=== PATIENT | male | born 1960 | race Caucasian/White ===

== ENCOUNTER 2016-04-04 00:30 | Emergency (ER) | payer MEDICAID ==
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
[2016-04-04 00:55] VITALS: BP 169/90; PULSE 94; RESP 16; TEMP 96.3; O2SAT 97
[2016-04-04] MEDS ORDERED: CHLORDIAZEPOXIDE 25MG PREPK#6 BTL TAKEHOME ONE (04:58)
== END 2016-04-04 05:00 | disposition home or self-care (01) ==
LOC: EDUNIT#
DX: F10.129 Alcohol abuse with intoxication, unspecified (principal); F17.200 Nicotine dependence, unspecified, uncomplicated

== ENCOUNTER 2016-09-07 18:21 | Emergency (ER) | payer MEDICAID ==
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
[2016-09-07 18:45] VITALS: TEMP 96.8
[2016-09-07 19:08] VITALS: BP 139/74; PULSE 100; RESP 18; O2SAT 92
== END 2016-09-07 19:08 | disposition home or self-care (01) ==
LOC: EDUNIT#
DX: S61.411A Laceration without foreign body of right hand, initial encounter (principal); F10.920 Alcohol use, unspecified with intoxication, uncomplicated; F17.200 Nicotine dependence, unspecified, uncomplicated; Y04.8XXA Assault by other bodily force, initial encounter

== ENCOUNTER 2016-09-08 09:54 | Emergency (ER) | payer MEDICAID ==
[2016-09-08 10:05] VITALS: TEMP 98.1
[2016-09-08] MEDS ORDERED: CHLORDIAZEPOXIDE 25MG PREPK#6 BTL TAKEHOME ONE (10:52)
[2016-09-08] MEDS ORDERED: LORazepam 1 MG TAB PO ONE (10:52)
--- NOTE | 2016-09-08 10:55 | EDPHY ---
H & P Time Seen by Provider: 09/08/16 10:22 HPI/ROS: CHIEF COMPLAINT: Alcohol withdrawal HISTORY OF PRESENT ILLNESS: 56-year-old male presents to the emergency department by cab with acute alcohol withdrawal. The patient last drank alcohol approximately 12 hours ago. He was seen in the emergency department and taken to the [facility] recovery [facility] last night. When he woke up this morning he was feeling tremulous and was sent to the emergency department for evaluation and for medication. Patient has had numerous alcohol withdrawal related seizures. He would like to quit drinking. He denies any other substance abuse. Denies chest pain or difficulty breathing. Denies abdominal pain. Denies headache. He has chronic neck pain from previous C-spine fracture. REVIEW OF SYSTEMS: Constitutional: No fever, no chills. Eyes: No double or blurry vision. ENT: No sore throat. Respiratory: No cough, no shortness of breath. Cardiac: No chest pain. Gastrointestinal: No abdominal pain, vomiting or diarrhea. Genitourinary: No dysuria. Musculoskeletal: Chronic Neck pain as above. No back pain Skin: No rashes. Neurological: No headache. Past Medical/Surgical History: Chronic neck pain, cervical spine fracture, alcoholism, alcohol withdrawal seizures Social History: Currently homeless Smoking Status: Heavy smoker Physical Exam: General Appearance: Alert, no distress. Heart rate of 70. No obvious distress. Eyes: Pupils equal and round. Extraocular motions are all intact. ENT: Mouth: Mucous membranes moist. Respiratory: No wheezing, rhonchi, or rales, lungs are clear to auscultation. Cardiovascular: Regular rate and rhythm. Gastrointestinal: Abdomen is soft and nontender, no masses, no rebound or guarding, bowel sounds normal. Neurological: Alert and oriented x 3, cranial nerves II through XII grossly intact Skin: Warm and dry, no rashes. Musculoskeletal: Nontender to palpate along the cervical, thoracic or lumbar spine. Neck is supple. Extremities: Full range of motion and no peripheral edema. Psychiatric: Patient is oriented X 3, there is no agitation. Constitutional: Initial Vital Signs Temperature (C) 36.7 C 09/08/16 10:00 Heart Rate 84 09/08/16 10:00 Respiratory Rate 18 09/08/16 10:00 Blood Pressure 151/99 H 09/08/16 10:00 O2 Sat (%) 99 09/08/16 10:00 O2 Delivery Mode Room Air Allergies/Adverse Reactions: No Known Allergies Allergy (Verified 09/08/16 10:02) Home Medications: Medication Instructions Recorded NK [No Known Home Meds] 09/08/16 Medical Decision Making ED Course/Re-evaluation: 56-year-old male presents to the emergency department with alcohol withdrawal. His vital signs are stable including heart rate of 70. No seizure activity in the emergency department. He was given 1 mg of Ativan p. o. since his last drink was 12 hours ago. He was also discharged with a Librium prepack and will be discharged to the addiction recovery Center by cab. Patient is comfortable with this plan. Differential Diagnosis: Including but not limited to alcohol withdrawal, electrolyte abnormality, medication noncompliance, head injury, and breakthrough seizure. Departure - Departure Disposition: Home, Routine, Self-Care Clinical Impression: Alcohol withdrawal Qualifiers: Complication of substance-induced condition: uncomplicated Qualified Code(s): F10.230 - Alcohol dependence with withdrawal, uncomplicated Condition: Good Instructions: Alcohol Withdrawal (ED) Additional Instructions: Go to the Addiction recovery Center so that they can help you with your symptoms of alcohol withdrawal. Your given 1 mg Ativan orally in the emergency department. You will be discharged with Librium for you to give to the staff at the diction recovery Center. Referrals: [facility] [Outside] - As per Instructions
[2016-09-08 11:17] VITALS: BP 145/103; PULSE 78; RESP 16; O2SAT 100
== END 2016-09-08 11:15 | disposition home or self-care (01) ==
DX: F10.230 Alcohol dependence with withdrawal, uncomplicated (principal); F17.200 Nicotine dependence, unspecified, uncomplicated

== ENCOUNTER 2016-09-16 00:27 | Emergency (ER) | payer MEDICAID ==
[~2016-09-16 00:27] MED LIST: AMOXICILLIN/CLAVULANATE POT 875/125 MG TAB PO SCH
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
[2016-09-16 02:09] VITALS: O2SAT 96
[2016-09-16] MEDS ORDERED: OXYCODONE/APAP 5/325MG PREPACK#4 BTL TAKEHOME ONE (02:09)
[2016-09-16 03:15] VITALS: BP 103/63; PULSE 75; RESP 18; TEMP 98.6
== END 2016-09-16 03:15 | disposition home or self-care (01) ==
LOC: EDUNIT#
DX: S02.640A Fracture of ramus of mandible, unspecified side, initial encounter for closed fracture (principal); F17.200 Nicotine dependence, unspecified, uncomplicated; Y04.0XXA Assault by unarmed brawl or fight, initial encounter

== ENCOUNTER 2016-10-22 14:27 | Inpatient (IN) | payer MEDICAID ==
[2016-10-22] MEDS ORDERED: ACETAMINOPHEN 325 MG TAB ONE (14:42)
[2016-10-22] MEDS ORDERED: ACETAMINOPHEN 325 MG TAB PO ONE (14:44)
[2016-10-22] MEDS ORDERED: NS 1,000 ML IV ONE ×2 (14:49→14:56)
--- NOTE | 2016-10-22 14:49 | EDPHY ---
H & P Stated Complaint: Fell last night. Concerned about head injury. Time Seen by Provider: 10/22/16 14:48 HPI/ROS: CHIEF COMPLAINT: Fever, alcoholism, head injury HISTORY OF PRESENT ILLNESS: The patient presents to the ED with a several day history of fever and for evaluation of a fall last night which resulted in head injury. The patient denies any acute nausea or vomiting. He does complain of a frontal headache. The patient reports he has felt fevers for the past several days. He denies an acute cough but does have a chronic one secondary to smoking. He has no complaints of abdominal pain. The patient denies history of rash or arthralgias. The patient reports that he did break his jaw approximately 5 weeks ago. He reports minimal pain to that area currently. REVIEW OF SYSTEMS: A comprehensive 10 point review of systems is otherwise negative aside from elements mentioned in the history of present illness. Source: Patient - Personal History Tetanus Vaccine Date: 2014 - Medical/Surgical History Hx Asthma: No Hx Chronic Respiratory Disease: No Hx Diabetes: No Hx Cardiac Disease: No Hx Renal Disease: No Hx Cirrhosis: No Hx Alcoholism: Yes Hx HIV/AIDS: No Hx Splenectomy or Spleen Trauma: No Other PMH: ETOH ABUSE, ETOH w/d seizures, gerd, cervical spine surgery - Social History Smoking Status: Heavy smoker - Physical Exam Exam: General Appearance: Alert, no distress Head: Hematoma and abrasion noted over left eyebrow Eyes: Pupils equal and round no pallor or injection ENT, Mouth: Dry mucous membranes Respiratory: There are no retractions, lungs are clear to auscultation Cardiovascular: Tachycardic, no murmur appreciated Gastrointestinal: Abdomen is soft and nontender, no masses, bowel sounds normal Neurological: A&O, normal motor function, normal sensory exam, normal cranial nerves Skin: 2 small boils noted on right forearm, non fluctuance Musculoskeletal: Neck is supple nontender Extremities: symmetrical, full range of motion Constitutional: Initial Vital Signs Temperature (C) 38.9 C H 10/22/16 14:33 Heart Rate 102 H 10/22/16 14:33 Respiratory Rate 20 10/22/16 14:33 Blood Pressure 117/82 H 10/22/16 14:33 O2 Sat (%) 94 10/22/16 14:33 O2 Delivery Mode Room Air Allergies/Adverse Reactions: No Known Allergies Allergy (Verified 09/08/16 10:02) Home Medications: Medication Instructions Recorded Escitalopram Oxalate [Lexapro] 20 mg PO DAILY 10/22/16 Esomeprazole Magnesium [Nexium] 20 mg PO BID 10/22/16 Pregabalin [LYRICA] 100 mg PO TID 10/22/16 Medical Decision Making - Diagnostics Imaging Results: Imaging Impressions Head CT 10/22/16 14:50 Impression: 1. Nothing acute identified intracranially. Premature atrophy has been described in a CT report from August 2015. 2. Right mandibular neck and angle fractures incompletely evaluated. 3. Left frontal scalp hematoma. 2. CT Cervical Spine Without Contrast History: Trauma. EtOH. Pain. Comparison: July 23, 2015. Technique: Multi-slice ultrathin single breath-hold helical CT through the neck from the skull base through the thoracic inlet without contrast. Soft tissue and bone window evaluation is performed. Sagittal and coronal reconstructions are obtained. Dose reduction techniques were utilized. Findings: There are stellate soft tissue densities in each lung apex, incompletely evaluated, but associated with apical emphysema. These are not significantly changed since July 23, 2015. Cervical alignment is stable and anatomic. A wide laminectomy with posterior fusion construct between C3 and C6 is stable. There is no evidence for hardware fracture or loosening. A tiny bony density adjacent to the left T1 transverse process is stable. No fracture or dislocation is identified. Disk spaces are well maintained. Facets are normally aligned. The skull base- C1 and C1-C2 relationship are stable and normal. The odontoid process is intact. There is no evidence of a prevertebral or epidural hematoma. Impression: Nothing acute identified. If there is concern for instability, then consider lateral flexion-extension views, cervical fluoroscopy and/or cervical MRI. Results called and discussed with Leonides Cameron, at 10/22/2016 15:53 General information for patients regarding this examination can be found at [email or web address]. If you have questions or comments about this report, please contact me at [phone] (hospital) or [phone] (cell). Cervical Spine CT 10/22/16 14:55 Impression: 1. Nothing acute identified intracranially. Premature atrophy has been described in a CT report from August 2015. 2. Right mandibular neck and angle fractures incompletely evaluated. 3. Left frontal scalp hematoma. 2. CT Cervical Spine Without Contrast History: Trauma. EtOH. Pain. Comparison: July 23, 2015. Technique: Multi-slice ultrathin single breath-hold helical CT through the neck from the skull base through the thoracic inlet without contrast. Soft tissue and bone window evaluation is performed. Sagittal and coronal reconstructions are obtained. Dose reduction techniques were utilized. Findings: There are stellate soft tissue densities in each lung apex, incompletely evaluated, but associated with apical emphysema. These are not significantly changed since July 23, 2015. Cervical alignment is stable and anatomic. A wide laminectomy with posterior fusion construct between C3 and C6 is stable. There is no evidence for hardware fracture or loosening. A tiny bony density adjacent to the left T1 transverse process is stable. No fracture or dislocation is identified. Disk spaces are well maintained. Facets are normally aligned. The skull base- C1 and C1-C2 relationship are stable and normal. The odontoid process is intact. There is no evidence of a prevertebral or epidural hematoma. Impression: Nothing acute identified. If there is concern for instability, then consider lateral flexion-extension views, cervical fluoroscopy and/or cervical MRI. Results called and discussed with Leonides Cameron, at 10/22/2016 15:53 General information for patients regarding this examination can be found at [email or web address]. If you have questions or comments about this report, please contact me at (hospital) or [phone] (cell). Chest X-Ray 10/22/16 14:55 Impression: Probable mild bronchitis. ED Course/Re-evaluation: The patient presents the ED primarily for evaluation of head injury which occurred yesterday. The patient did have a contusion to his scalp. He was taken for CT scan given his complaints of headache and alcoholism and large scalp hematoma. This demonstrated no evidence of a skull fracture or intracranial hemorrhage. There is an old mandibular fracture noted. The patient's CT cervical spine demonstrates no evidence of an acute fracture. Patient's chest x-ray demonstrates no evidence of acute disease. The patient was noted to be febrile upon arrival. The patient does have 2 very small boils on his right forearm. Otherwise his chest x-ray demonstrates no evidence of an obvious bacterial pneumonia, is urinalysis is within normal limits. His laboratory studies demonstrate no significant leukocytosis. The patient was cooled in the emergency department. It was nearly 100 degrees outside today. The patient's temperature improved shortly after arrival however then spiked again to 38 degrees. I evaluated the patient at 5:38 p.m.. He is having shaking chills. At this point time I am fairly concerned about the possibility of occult bacteremia. The patient does have 2 small furuncles on his forearm. The patient will be started on vancomycin and Invanz empirically. Consultation is made with the hospitalist service. The patient presents to the ED with primary symptom surrounding head injury and was incidentally noted to be febrile. Initially I thought it was secondary to heat exposure however after an initial period of defervesced since he has now developed fever and shaking chills. The patient's initial lactate was elevated. The patient has been declared septic shock by myself in the setting of an elevated lactate, positive SIRS criteria and clinical concerns possible bacteremia. The patient has had no hypotension or evidence of septic shock. The patient was given 1 mg of Ativan in the emergency department. Differential Diagnosis: Differential diagnosis considered includes intracranial hemorrhage, skull fracture, cervical spine fracture, pneumonia, sepsis, bacteremia, metabolic abnormality, heat stroke - Data Points Laboratory Results: Laboratory Results 10/22/16 14:35 10/22/16 16:35 10/22/16 10/22/16 10/22/16 16:35 16:35 15:55 WBC RBC Hgb Hct MCV MCH MCHC RDW Plt Count MPV Neut % (Auto) Lymph % (Auto) Bladen % (Auto) Eos % (Auto) Baso % (Auto) Nucleat RBC Rel Count Absolute Neuts (auto) Absolute Lymphs (auto) Absolute Monos (auto) Absolute Eos (auto) Absolute Basos (auto) Absolute Nucleated RBC Immature Gran % Immature Gran # PT INR VBG Lactic Acid 2.3 mmol/L H mmol/L (0.7-2.1) Sodium 132 mEq/L L mEq/L (134-144) Potassium 3.4 mEq/L L mEq/L (3.5-5.2) Chloride 106 mEq/L mEq/L (97-110) Carbon Dioxide 15 mEq/l L mEq/l (22-31) Anion Gap 11 mEq/L mEq/L (8-16) BUN 5 mg/dL L mg/dL (7-23) Creatinine 0.7 mg/dL mg/dL (0.7-1.3) Estimated GFR > 60 Glucose 87 mg/dL mg/dL (70-100) Calcium 6.9 mg/dL L D mg/dL (8.5-10.4) Total Bilirubin Conjugated Bilirubin Unconjugated Bilirubin AST ALT Alkaline Phosphatase Total Protein Albumin Lipase Urine Color PALE YELLOW Urine Appearance CLEAR Urine pH 6.0 (5.0-7.5) Ur Specific Bayard 1.002 (1.002-1.030) Urine Protein NEGATIVE (NEGATIVE) Urine Ketones NEGATIVE (NEGATIVE) Urine Blood NEGATIVE (NEGATIVE) Urine Nitrate NEGATIVE (NEGATIVE) Urine Bilirubin NEGATIVE (NEGATIVE) Urine Urobilinogen NEGATIVE EU EU (0.2-1.0) Ur Leukocyte Esterase NEGATIVE (NEGATIVE) Urine RBC 1-3 /hpf /hpf (0-3) Urine WBC 1-3 /hpf /hpf (0-3) Ur Epithelial Cells NONE SEEN /lpf /lpf (NONE-1+) Urine Mucus TRACE /lpf /lpf (NONE-1+) Urine Glucose NEGATIVE (NEGATIVE) 10/22/16 10/22/16 10/22/16 14:55 14:35 14:35 WBC RBC Hgb Hct MCV MCH MCHC RDW Plt Count MPV Neut % (Auto) Lymph % (Auto) Bladen % (Auto) Eos % (Auto) Baso % (Auto) Nucleat RBC Rel Count Absolute Neuts (auto) Absolute Lymphs (auto) Absolute Monos (auto) Absolute Eos (auto) Absolute Basos (auto) Absolute Nucleated RBC Immature Gran % Immature Gran # PT 13.2 SEC SEC (12.0-15.0) INR 1.01 (0.83-1.16) VBG Lactic Acid 2.4 mmol/L H mmol/L (0.7-2.1) Sodium 129 mEq/L L mEq/L (134-144) Potassium 3.8 mEq/L mEq/L (3.5-5.2) Chloride 97 mEq/L mEq/L (97-110) Carbon Dioxide 17 mEq/l L mEq/l (22-31) Anion Gap 15 mEq/L mEq/L (8-16) BUN 8 mg/dL mg/dL (7-23) Creatinine 0.8 mg/dL mg/dL (0.7-1.3) Estimated GFR > 60 Glucose 115 mg/dL H mg/dL (70-100) Calcium 8.6 mg/dL mg/dL (8.5-10.4) Total Bilirubin 0.4 mg/dL mg/dL (0.1-1.4) Conjugated Bilirubin 0.4 mg/dL mg/dL (0.0-0.5) Unconjugated Bilirubin 0.0 mg/dL mg/dL (0.0-1.1) AST 27 IU/L IU/L (17-59) ALT 29 IU/L IU/L (21-72) Alkaline Phosphatase 134 IU/L H IU/L (38-126) Total Protein 7.1 g/dL g/dL (6.3-8.2) Albumin 4.0 g/dL g/dL (3.5-5.0) Lipase 170 IU/L IU/L (23-300) Urine Color Urine Appearance Urine pH Ur Specific Bayard Urine Protein Urine Ketones Urine Blood Urine Nitrate Urine Bilirubin Urine Urobilinogen Ur Leukocyte Esterase Urine RBC Urine WBC Ur Epithelial Cells Urine Mucus Urine Glucose 10/22/16 14:35 WBC 10.45 10^3/uL H 10^3/uL (3.80-9.50) RBC 4.12 10^6/uL L 10^6/uL (4.40-6.38) Hgb 13.6 g/dL L g/dL (13.7-17.5) Hct 39.7 % L % (40.0-51.0) MCV 96.4 fL fL (81.5-99.8) MCH 33.0 pg pg (27.9-34.1) MCHC 34.3 g/dL g/dL (32.4-36.7) RDW 15.1 % % (11.5-15.2) Plt Count 166 10^3/uL 10^3/uL (150-400) MPV 10.1 fL fL (8.7-11.7) Neut % (Auto) 70.6 % % (39.3-74.2) Lymph % (Auto) 18.1 % % (15.0-45.0) Bladen % (Auto) 10.0 % % (4.5-13.0) Eos % (Auto) 0.1 % L % (0.6-7.6) Baso % (Auto) 0.5 % % (0.3-1.7) Nucleat RBC Rel Count 0.0 % % (0.0-0.2) Absolute Neuts (auto) 7.38 10^3/uL H 10^3/uL (1.70-6.50) Absolute Lymphs (auto) 1.89 10^3/uL 10^3/uL (1.00-3.00) Absolute Monos (auto) 1.05 10^3/uL H 10^3/uL (0.30-0.80) Absolute Eos (auto) 0.01 10^3/uL L 10^3/uL (0.03-0.40) Absolute Basos (auto) 0.05 10^3/uL 10^3/uL (0.02-0.10) Absolute Nucleated RBC 0.00 10^3/uL 10^3/uL (0-0.01) Immature Gran % 0.7 % % (0.0-1.1) Immature Gran # 0.07 10^3/uL 10^3/uL (0.00-0.10) PT INR VBG Lactic Acid Sodium Potassium Chloride Carbon Dioxide Anion Gap BUN Creatinine Estimated GFR Glucose Calcium Total Bilirubin Conjugated Bilirubin Unconjugated Bilirubin AST ALT Alkaline Phosphatase Total Protein Albumin Lipase Urine Color Urine Appearance Urine pH Ur Specific Bayard Urine Protein Urine Ketones Urine Blood Urine Nitrate Urine Bilirubin Urine Urobilinogen Ur Leukocyte Esterase Urine RBC Urine WBC Ur Epithelial Cells Urine Mucus Urine Glucose Medications Given: Discontinued Medications Acetaminophen (Tylenol) 650 mg PO EDNOW ONE Stop: 10/22/16 14:45 Last Admin: 10/22/16 14:45 Dose: 650 mg Sodium Chloride (Ns) 1,000 mls @ 0 mls/hr IV ONCE ONE; Wide Open PRN Reason: Protocol Stop: 10/22/16 14:50 Last Admin: 10/22/16 15:16 Dose: 1,000 mls Sodium Chloride (Ns) 1,000 mls @ 0 mls/hr IV EDNOW ONE; Wide Open PRN Reason: Protocol Stop: 10/22/16 14:57 Last Admin: 10/22/16 15:18 Dose: 1,000 mls Ertapenem 1 gm/ Sodium (Chloride) 100 mls @ 200 mls/hr IV EDNOW ONE PRN Reason: Protocol Stop: 10/22/16 18:05 Last Admin: 10/22/16 17:59 Dose: 100 mls Vancomycin/Sodium Chloride (Vancomycin 1 Gm (Premix)) 250 mls @ 250 mls/hr IV EDNOW ONE PRN Reason: Protocol Stop: 10/22/16 18:35 Last Admin: 10/22/16 17:46 Dose: 250 mls Lorazepam (Ativan Injection) 1 mg IVP EDNOW ONE Stop: 10/22/16 17:47 Last Admin: 10/22/16 17:51 Dose: 1 mg Departure - Departure Disposition: [facility] Inpatient Acute Clinical Impression: Scalp contusion, Alcohol dependence, Febrile illness, acute, Severe sepsis Condition: Good
[2016-10-22 14:56] LABS: % IMMATURE GRANULYOCYTES 0.7 % (0.0-1.1); ABSOLUTE IMMATURE GRANULOCYTES 0.07 10^3/uL (0.00-0.10); ADD DIFF? NO; ADD MORPH? NO; ADD SCAN? NO; ATYPICAL LYMPHOCYTE FLAG 40 (0-99); FRAGMENT RBC FLAG 0 (0-99); HEMATOCRIT 39.7 % (40.0-51.0); HEMOGLOBIN 13.6 g/dL (13.7-17.5); LEFT SHIFT FLG 0 (0-99); LIPEMIA HEMOLYSIS FLAG 90 (0-99); MEAN CELL HEMOGLOBIN CONCENTR. 34.3 g/dL (32.4-36.7); MEAN CELL VOLUME 96.4 fL (81.5-99.8); MEAN PLATELET VOLUME 10.1 fL (8.7-11.7); PLATELET CLUMPS FLAG 0 (0-99); PLATELET COUNT 166 10^3/uL (150-400); RED BLOOD CELL COUNT 4.12 10^6/uL (4.40-6.38); RED CELL DISTRIBUTION WIDTH 15.1 % (11.5-15.2)
[2016-10-22 15:02] LABS: ANION GAP 15 mEq/L (8-16); CALCIUM 8.6 mg/dL (8.5-10.4); CARBON DIOXIDE 17 mEq/l (22-31); CHLORIDE 97 mEq/L (97-110); CREATININE 0.8 mg/dL (0.7-1.3); GLOMERULAR FILTRATION RATE > 60; GLUCOSE 115 mg/dL (70-100); POTASSIUM 3.8 mEq/L (3.5-5.2); SODIUM 129 mEq/L (134-144)
[2016-10-22 15:13] LABS: TOTAL PROTEIN 7.1 g/dL (6.3-8.2)
[2016-10-22 15:14] LABS: ALANINE AMINOTRANSFERASE 29 IU/L (21-72); ALKALINE PHOSPHATASE 134 IU/L (38-126); ASPARTATE AMINOTRANSFERASE 27 IU/L (17-59); BILIRUBIN,TOTAL 0.4 mg/dL (0.1-1.4); BILIRUBIN-CONJUGATED 0.4 mg/dL (0.0-0.5)
[2016-10-22 15:17] LABS: INR 1.01 (0.83-1.16); PROTIME(PATIENT) 13.2 SEC (12.0-15.0)
[2016-10-22 15:22] LABS: ETHANOL SERUM 161 mg/dL (0-10)
[2016-10-22 16:05] LABS: COLOR PALE YELLOW; LEUKOCYTE ESTERASE,URINE NEGATIVE (NEGATIVE); NITRITE,URINE NEGATIVE (NEGATIVE)
[2016-10-22 16:06] LABS: MUCUS TRACE /lpf (NONE-1+)
[2016-10-22 17:11] LABS: ANION GAP 11 mEq/L (8-16); CALCIUM 6.9 mg/dL (8.5-10.4); CARBON DIOXIDE 15 mEq/l (22-31); CHLORIDE 106 mEq/L (97-110); CREATININE 0.7 mg/dL (0.7-1.3); GLOMERULAR FILTRATION RATE > 60; GLUCOSE 87 mg/dL (70-100); POTASSIUM 3.4 mEq/L (3.5-5.2); SODIUM 132 mEq/L (134-144)
[2016-10-22] MEDS ORDERED: VANCOMYCIN HCL/NORMAL SALINE 250 ML IV ONE (17:36)
[2016-10-22] MEDS ORDERED: ERTAPENEM 1 GM in NS 100 ML IV ONE (17:36)
[2016-10-22] MEDS ORDERED: LORazepam 2 MG/ML INJ IVP ONE (17:46)
[2016-10-22] MEDS ORDERED: ONDANSETRON 4 MG/2 ML VIAL IVP PRN (19:27)
[2016-10-22] MEDS ORDERED: ONDANSETRON DISINTEGRATING 4 MG TAB PO PRN (19:27)
[2016-10-22] MEDS ORDERED: chlordiazePOXIDE 25 MG CAP PO PRN (19:29)
[2016-10-22] MEDS ORDERED: chlordiazePOXIDE 25 MG CAP PO ONE (19:29)
[2016-10-22] MEDS ORDERED: NS 1,000 ML IV SCH (19:30)
[2016-10-22] MEDS ORDERED: POTASSIUM CL 20 MEQ TAB PO ONE (19:31)
[2016-10-22] MEDS: IPRATROPIUM/ALBUTEROL 3 ML DEYVIAL IH SCH (20:33)
[2016-10-22] MEDS: PREGABALIN 100 MG CAP PO SCH (21:15)
[2016-10-22] MEDS: ACETAMINOPHEN 325 MG TAB PO PRN (21:15)
--- NOTE | 2016-10-22 22:02 | GHP ---
[f rep st] HISTORY AND PHYSICAL DATE OF ADMISSION: 10/22/2016 CHIEF COMPLAINT: Fell last night, fever. HISTORY OF PRESENT ILLNESS: This is a 56-year-old male, with alcoholism, who presents with a fall l ast night with resulting head injury. He also complains of fever for several days. He does say mart t he has had significant amounts of coughing with some sputum production. No shortness of breath. No dysuria. No abdominal pain. He just had a recent jaw fracture about 5 weeks ago. He does drink a 40 of beer per day, and states that he has gone into withdrawal at times. REVIEW OF SYSTEMS: A 10-point review of systems was obtained and was negative. PAST MEDICAL HISTORY: 1. Alcoholism. 2. History of withdrawal seizures. 3. GERD. 4. History of cervical spine surgery. MEDICATIONS: Reviewed. SOCIAL HISTORY: Alcohol intake as above. Does smoke. FAMILY HISTORY: Reviewed, noncontributory. PHYSICAL EXAMINATION: VITAL SIGNS: Temperature is 38.9, blood pressure is 157/86, heart rate 109, oxygen saturation 94% on room air. GENERAL: The patient is well developed, no apparent distress. H EENT: Nonicteric sclerae. Extraoculars muscles intact. Moist mucous membranes. NECK: Supple. N o thyromegaly. LUNGS: Good effort. There is some scattered coarse wheezing bilaterally. No rhonc hi. CARDIOVASCULAR: Slightly tachycardic. No murmurs, rubs or gallops. ABDOMEN: Positive bowel sounds, soft, nontender, nondistended. No hepatosplenomegaly. EXTREMITIES : No clubbing, cyanosis, or edema. SKIN: Without rash. Dry, intact. NEUROLOGIC: Alert and orien terra x3. Moving all 4 extremities equally. PSYCHIATRIC: Normal mood and affect. LABORATORY DATA: White count slightly elevated at 10, lactate was elevated at 2.4, has come down to 2.3 with fluids. Sodium 132, potassium 3.4, creatinine is 0.7. Ethyl alcohol is 161. Respiratory panel has come back with human rhinovirus/enterovirus. ASSESSMENT: This is a 56-year-old male with a history of recent fall and fever. PLAN: 1. Status post fall. Head CT is negative. We will continue to monitor mental status. 2. Fever. The patient is positive for human rhinovirus. Other blood cultures are pending. He guillory s seem to have worsening cough. At this point, we will hold off on any further antibiotics. We madison l get blood cultures and see how he does symptomatically. 3. Alcoholism. We will place on CIWA protocol. 4. Hyponatremia, probably dry. 5. Mild hypokalemia, replace. /[id number]/MODL
[2016-10-23] MEDS: LORazepam 2 MG/ML INJ IVP PRN ×2 (04:44→11:00)
[2016-10-23 04:47] LABS: % IMMATURE GRANULYOCYTES 0.5 % (0.0-1.1); ABSOLUTE IMMATURE GRANULOCYTES 0.07 10^3/uL (0.00-0.10); ADD DIFF? NO; ADD MORPH? NO; ADD SCAN? NO; ATYPICAL LYMPHOCYTE FLAG 40 (0-99); FRAGMENT RBC FLAG 0 (0-99); HEMATOCRIT 43.6 % (40.0-51.0); HEMOGLOBIN 14.5 g/dL (13.7-17.5); LEFT SHIFT FLG 10 (0-99); LIPEMIA HEMOLYSIS FLAG 80 (0-99); MEAN CELL HEMOGLOBIN 32.8 pg (27.9-34.1); MEAN CELL HEMOGLOBIN CONCENTR. 33.3 g/dL (32.4-36.7); MEAN CELL VOLUME 98.6 fL (81.5-99.8); MEAN PLATELET VOLUME 10.2 fL (8.7-11.7); PLATELET CLUMPS FLAG 0 (0-99); PLATELET COUNT 179 10^3/uL (150-400); RED BLOOD CELL COUNT 4.42 10^6/uL (4.40-6.38); RED CELL DISTRIBUTION WIDTH 15.4 % (11.5-15.2)
[2016-10-23 05:18] LABS: ALANINE AMINOTRANSFERASE 24 IU/L (21-72); ALBUMIN 3.6 g/dL (3.5-5.0); ALKALINE PHOSPHATASE 132 IU/L (38-126); ANION GAP 12 mEq/L (8-16); ASPARTATE AMINOTRANSFERASE 28 IU/L (17-59); BILIRUBIN,TOTAL 0.6 mg/dL (0.1-1.4); CALCIUM 8.2 mg/dL (8.5-10.4); CARBON DIOXIDE 20 mEq/l (22-31); CHLORIDE 106 mEq/L (97-110); CREATININE 0.7 mg/dL (0.7-1.3); GLOMERULAR FILTRATION RATE > 60; GLUCOSE 113 mg/dL (70-100); MAGNESIUM 2.1 mg/dL (1.6-2.3); POTASSIUM 4.6 mEq/L (3.5-5.2); SODIUM 138 mEq/L (134-144); TOTAL PROTEIN 6.7 g/dL (6.3-8.2)
[2016-10-23] MEDS: IPRATROPIUM/ALBUTEROL 3 ML DEYVIAL IH SCH ×2 (05:36→11:34)
[2016-10-23] MEDS: PREGABALIN 100 MG CAP PO SCH (07:46)
[2016-10-23] MEDS ORDERED: MULTIVITAMINS 1 EACH TAB PO SCH (09:00)
[2016-10-23] MEDS ORDERED: ENOXAPARIN 40 MG/0.4 ML SYR SC SCH (09:00)
[2016-10-23] MEDS ORDERED: PANTOPRAZOLE SODIUM 40 MG TAB PO SCH (09:00)
[2016-10-23] MEDS ORDERED: ESCITALOPRAM OXALATE 10 MG TAB PO SCH (09:00)
[2016-10-23 09:08] VITALS: BP 126/68; TEMP 99.9
[2016-10-23] MEDS: ACETAMINOPHEN 325 MG TAB PO PRN (11:00)
[2016-10-23] MEDS ORDERED: BACITRACIN OINTMENT 1 PACKET TP SCH (11:45)
[2016-10-23 11:48] VITALS: PULSE 94; RESP 16; O2SAT 92
--- NOTE | 2016-10-23 12:21 | ASDISCHSUM ---
Discharge Information Plan Status:Home with No Needs Medically Cleared to Leave: Discharge Date:10/23/2016 11:51 AM CM D/C Disposition:Against Medical Advice ADT D/C Disposition:Home, Routine, Self-Care Projected Discharge Date:10/23/2016 11:51 AM Transportation at D/C:Self Discharge Delay Reason: Follow-Up Date:10/23/2016 11:51 AM Discharge Slot: Final Diagnosis: Placement Information Patient Contact Information Contact Name:REYNALDO Relationship: Address: Home Phone: Work Phone: City: Alternate Phone: State/[place] Code: Email: Financial Information Financial Class: Primary Plan Desc:[employer] [place] Primary Plan Number:[id number] Secondary Plan Desc: Secondary Plan Number: Assessment Information Intervention Information
--- NOTE | 2016-10-23 14:24 | PDDCSUM ---
Discharge Summary Discharge Summary: DISCHARGE SUMMARY FOLLOW-UP ITEMS: Follow up with primary care provider DATE OF ADMISSION: 10/22/2016 DATE OF DISCHARGE: 10/23/2016 DISCHARGE DIAGNOSES: 1. Acute enterovirus and rhinovirus infection 2. Acute mechanical fall with closed head injury 3. Acute alcohol withdrawal 4. Acute hyponatremia 5. Acute metabolic/lactic acidosis 6. Acute alcohol intoxication CONSULTATIONS: None PROCEDURES / IMAGING: Head CT demonstrating no intracranial hemorrhage CHIEF COMPLAINT: Acute headache pain, myalgias SUBJECTIVE: Patient is feeling well at time of discharge, he is requesting to be discharged because like to smoke, he continues to have some pain over his left scalp PHYSICAL EXAM ON DISCHARGE: Systolic blood pressure is 120-130, heart rate 80, last fever was at 9:00 p.m. on the evening prior, satting well on room air, alert awake oriented x3, no apparent distress, scalp laceration without any surrounding erythema or ecchymoses, some left eyelid edema without overt tenderness, full range of motion of the left eye, no scleral injection, non tremulous, no asterixis, concentration 7/7, lungs are clear to auscultation bilaterally LABS ON DISCHARGE: Alcohol level on presentation 161, urinalysis negative, alk-phos 132, venous lactic acid 2.2, serum sodium 138, white blood count [id number], creatinine 0.7, respiratory viral panel positive for rhinovirus and enterovirus HOSPITAL COURSE BY PROBLEM: 1. Acute rhino virus and enterovirus infection. Patient's myalgias, leukocytosis, fever, general discomfort most likely secondary to viral infection. The patient has been experiencing this for several days and will most likely be a self-limited process. We recommended supportive care with Tylenol and ibuprofen. The patient does not have any evidence of acute airway issues and he is safe for discharge home. 2. Acute metabolic acidosis. Secondary to lactic acid, most likely secondary to ketoacidosis in the setting of alcohol intoxication and poor oral intake. Patient is not hypotensive; he does not require further testing. He does not require further testing. 3. Acute hyponatremia. Secondary to hypovolemia on presentation, he received normal saline and this corrected. 4. Acute alcohol intoxication. The patient presented acutely intoxicated with an alcohol level of 161, resulting in a mechanical fall. 5. Acute alcohol withdrawal. After maintaining sobriety in the hospital, the patient experienced acute alcohol withdrawal, was treated on a [facility] protocol. Given that the patient does not require sobriety at this time, there is no purpose in further medical detox, and the patient is electing for discharge home. 6. Acute mechanical fall with closed head injury. The patient experienced a mechanical fall and closed head injury in the setting of alcohol intoxication and viral infection. He did not have any intracranial hemorrhage on head imaging, and his scalp was treated with bacitracin. The patient was not demonstrating any concussion symptoms at the time of discharge. DISCHARGE MEDICATIONS: Please see official discharge medication reconciliation sheet in chart , continue home medications. DISCHARGE INSTRUCTIONS: Please follow up with primary care provider next week. TIME SPENT: Greater than 30 minutes were spent on direct patient care, as well as discharge planning and preparation. The patient elected to be discharged, and his clinical condition improved much more rapidly than originally anticipated, secondary to highly efficient expeditious care by his nursing team, hospitalist, and by his admitting provider , Dr. Brenden Babcock. The patient is appropriate for discharge at this time.
[2016-10-25] MEDS ORDERED: THIAMINE HCL 100 MG TAB PO SCH (09:00)
== END 2016-10-23 11:51 | disposition home or self-care (01) | DRG 866 ==
LOC: EDUNIT# → F3E 18:51
PROVIDERS: ADMIT Internal Medicine; ATTEND Internal Medicine
PROC: HZ2ZZZZ Detoxification Services for Substance Abuse Treatment (ICD-10-PCS; principal; 2016-10-22)
DX: B34.1 Enterovirus infection, unspecified (principal); B34.8 Other viral infections of unspecified site; E87.2 Acidosis; E87.1 Hypo-osmolality and hyponatremia; F10.220 Alcohol dependence with intoxication, uncomplicated; F10.230 Alcohol dependence with withdrawal, uncomplicated; S09.8XXA Other specified injuries of head, initial encounter; W19.XXXA Unspecified fall, initial encounter; Y92.9 Unspecified place or not applicable; Y99.8 Other external cause status; F17.210 Nicotine dependence, cigarettes, uncomplicated; S02.642D Fracture of ramus of left mandible, subsequent encounter for fracture with routine healing; Z59.0 Homelessness
CPT/HCPCS: 96365; G0480; J1335; J1650; J2060; J3370

== ENCOUNTER 2016-10-24 04:52 | Inpatient (IN) | payer MEDICAID ==
[2016-10-24] MEDS ORDERED: NS 1,000 ML IV ONE ×3 (04:54→06:39)
[2016-10-24] MEDS ORDERED: VANCOMYCIN HCL/NORMAL SALINE 250 ML IV ONE (04:54)
[2016-10-24] MEDS ORDERED: CLINDAMYCIN 900 MG/DEXTROSE 50 ML IV ONE (04:55)
[2016-10-24] MEDS ORDERED: IBUPROFEN 200 MG TAB PO ONE (04:57)
[2016-10-24] MEDS ORDERED: ACETAMINOPHEN 500 MG TAB PO ONE (04:57)
[2016-10-24] MEDS ORDERED: IOPAMIDOL (ISOVUE-300) 100 ML BTL ONE (05:02)
--- NOTE | 2016-10-24 05:02 | EDPHY ---
H & P HPI/ROS: HPI CHIEF COMPLAINT: Fever, facial pain and swelling, cough productive green sputum HISTORY OF PRESENT ILLNESS: This patient very pleasant 56-year-old male, homeless, alcoholic, recently here in the hospital September 16 for mandibular fracture and facial trauma. He was recently seen here in the emergency room on October 22 status post fall and head injury. He presents back to the emergency room by EMS from the [facility] after call 911 for worsening facial swelling and pain. Upon arrival here in the emergency room: Patient is noted to be febrile. Clinically on exam he has significant facial cellulitis and periorbital edema. Past Medical History: Alcoholism, daily alcohol use, closed head injury, cervical fusion, hyponatremia Past Surgical History: Cervical fusion Social History: Does smoke tobacco daily, alcohol daily, denies drugs Family History: Noncontributory ROS REVIEW OF SYSTEMS: A comprehensive 10 point review of systems is otherwise negative aside from elements mentioned in the history of present illness. Exam Constitutional appears unwell, triage nursing summary reviewed, vital signs reviewed, awake/alert. Eyes normal conjunctivae and sclera, EOMI, PERRLA. HENT face: Significant bilateral periorbital edema, soft and fluctuant, no induration, worse on the left periorbital space than the right, extraocular movements are tacked on both eyes there is no proptosis. The swelling periorbital around left eye is significant, occluding his vision however when you open this he has no proptosis he can see an extra movements are intact. Abrasions left forehead present, moist mucus membranes, no epistaxis, neck supple/ no meningismus, no raccoon eyes. Respiratory clear to auscultation bilaterally, normal breath sounds, no respiratory distress, no wheezing. Cardiovascular rate normal, regular rhythm, no murmur, no edema, distal pulses normal. Gastrointestinal soft, non-tender, no rebound, no guarding, normal bowel sounds, no distension, no pulsatile mass. Genitourinary no CVA tenderness. Musculoskeletal no midline vertebral tenderness, full range of motion, no calf swelling, no tenderness of extremities, no meningismus, good pulses, neurovascularly intact. Skin significant abrasion left forehead concerning for source of infection. Neurologic awake, alert and oriented x 3, AAOx3, moves all 4 extremities equally, motor intact, sensory intact, CN II-XII intact, normal cerebellar, normal vision, normal speech. Psychiatric normal mood/affect. Heme/Lymph/Immune no lymphadenopathy. Differential Diagnosis: Includes but is not limited to: Facial cellulitis, sepsis, periorbital cellulitis, orbital cellulitis, orbital abscess Medical Decision Making: Plan for this patient IV establishment, IV vancomycin IV clindamycin, CT maxillofacial with IV contrast, blood including blood cultures, inflammatory markers and lactic acid. Patient need to be hospitalized with significant amount of facial cellulitis he has on exam. Chest x-ray two view. Re-evaluation: 0548AM: CT scan report called to me by Dr. Ross Nair. This patient has significant facial cellulitis. He does not cross the septum. There is no septal cellulitis or retro-orbital hematoma or abscess or fluid collection. Significant soft tissue swelling no gas of the face. 0548AM: This patient is noted to be febrile, elevated white blood cell count obvious signs of facial cellulitis. I have ordered him IV vancomycin IV clindamycin. Blood cultures. IV fluids. Will be admitted to the hospitalist service. Final diagnosis significant facial cellulitis, tachycardia, elevated white blood cell count, sepsis. Patient be admitted to the hospitalist service Dr. Samuel. Patient has been resuscitated with IV vancomycin, IV clindamycin, 2 L normal saline bolus. CT reviewed shows preseptal cellulitis no septal collection. Source: Patient, EMS - Personal History Tetanus Vaccine Date: 2014 - Medical/Surgical History Hx Asthma: No Hx Chronic Respiratory Disease: No Hx Diabetes: No Hx Cardiac Disease: No Hx Renal Disease: No Hx Cirrhosis: No Hx Alcoholism: Yes Hx HIV/AIDS: No Hx Splenectomy or Spleen Trauma: No Other PMH: ETOH ABUSE, ETOH w/d seizures, gerd, cervical spine surgery - Social History Smoking Status: Heavy smoker Constitutional: Initial Vital Signs Temperature (C) 39.5 C H 10/24/16 04:54 Heart Rate 116 H 10/24/16 04:54 Respiratory Rate 20 10/24/16 04:54 Blood Pressure 150/89 H 10/24/16 04:54 O2 Sat (%) 94 10/24/16 04:54 O2 Delivery Mode Room Air Allergies/Adverse Reactions: No Known Allergies Allergy (Verified 10/24/16 04:58) Home Medications: Medication Instructions Recorded Escitalopram Oxalate [Lexapro] 20 mg PO DAILY 10/24/16 Pregabalin [LYRICA] 100 mg PO TID 10/24/16 Medical Decision Making - Diagnostics Imaging Results: Imaging Impressions Chest X-Ray 10/24/16 04:58 Impression: 1. Suspect bilateral diffuse pneumonitis. 2. Recommend CT chest imaging. - Data Points Laboratory Results: Laboratory Results 10/24/16 04:59 10/24/16 04:59 Medications Given: Enoxaparin Sodium (Lovenox) 40 mg SC DAILY ELEANOR Stop: 04/22/17 08:59 Last Admin: 10/24/16 11:00 Dose: 40 mg Folic Acid (Folic Acid) 1 mg PO DAILY ELEANOR Stop: 04/22/17 08:59 Last Admin: 10/24/16 11:01 Dose: 1 mg Clindamycin Phosphate/Dextrose (Cleocin 600 Mg (Premix)) 50 mls @ 100 mls/hr IV Q8HRS ELEANOR PRN Reason: Protocol Stop: 11/23/16 13:59 Last Admin: 10/24/16 15:07 Dose: 50 mls Vancomycin/Sodium Chloride (Vancomycin 1 Gm (Premix)) 250 mls @ 250 mls/hr IV Q12H ELEANOR Stop: 11/23/16 17:59 Last Admin: 10/24/16 18:05 Dose: 250 mls Multivitamins (Tab-A-Deshawn) 1 each PO DAILY ELEANOR Stop: 04/22/17 08:59 Last Admin: 10/24/16 11:01 Dose: 1 each Nicotine (Nicoderm Cq) 21 mg TD DAILY ELEANOR Stop: 04/22/17 08:59 Last Admin: 10/24/16 11:01 Dose: 21 mg Oxycodone HCl (Oxycodone Ir) 5 - 10 mg PO Q3HRS PRN PRN Reason: Pain, Severe Able to Take PO Stop: 11/03/16 06:38 Last Admin: 10/24/16 19:37 Dose: 10 mg Pregabalin (Lyrica) 100 mg PO TID ELEANOR Stop: 04/22/17 15:59 Last Admin: 10/24/16 18:05 Dose: 100 mg Discontinued Medications Acetaminophen (Tylenol) 1,000 mg PO EDNOW ONE Stop: 10/24/16 04:58 Last Admin: 10/24/16 05:06 Dose: 1,000 mg Sodium Chloride (Ns) 1,000 mls @ 0 mls/hr IV ONCE ONE; Wide Open PRN Reason: Protocol Stop: 10/24/16 04:55 Last Admin: 10/24/16 05:13 Dose: 1,000 mls Vancomycin/Sodium Chloride (Vancomycin 1 Gm (Premix)) 250 mls @ 250 mls/hr IV EDNOW ONE PRN Reason: Protocol Stop: 10/24/16 05:53 Last Admin: 10/24/16 06:16 Dose: 250 mls Clindamycin Phosphate/Dextrose (Cleocin 900 Mg (Premix)) 50 mls @ 100 mls/hr IV EDNOW ONE PRN Reason: Protocol Stop: 10/24/16 05:24 Last Admin: 10/24/16 05:50 Dose: 50 mls Sodium Chloride (Ns) 1,000 mls @ 0 mls/hr IV ONCE ONE PRN Reason: Wide Open Stop: 10/24/16 05:33 Last Admin: 10/24/16 05:50 Dose: 1,000 mls Sodium Chloride (Ns) 1,000 mls @ 250 mls/hr IV ONCE ONE Stop: 10/24/16 10:38 Last Admin: 10/24/16 09:18 Dose: 1,000 mls Ibuprofen (Motrin) 800 mg PO EDNOW ONE Stop: 10/24/16 04:58 Last Admin: 10/24/16 05:07 Dose: 800 mg Departure - Departure Disposition: [facility] Acute Clinical Impression: Diffuse cellulitis of face Forehead abrasion Qualifiers: Encounter type: initial encounter Qualified Code(s): S00.81XA - Abrasion of other part of head, initial encounter Condition: Serious
[2016-10-24 05:05] LABS: % IMMATURE GRANULYOCYTES 0.7 % (0.0-1.1); ADD DIFF? NO; ADD MORPH? NO; ADD SCAN? NO; ATYPICAL LYMPHOCYTE FLAG 0 (0-99); FRAGMENT RBC FLAG 0 (0-99); HEMATOCRIT 41.7 % (40.0-51.0); HEMOGLOBIN 14.4 g/dL (13.7-17.5); LEFT SHIFT FLG 30 (0-99); LIPEMIA HEMOLYSIS FLAG 90 (0-99); MEAN CELL HEMOGLOBIN 33.2 pg (27.9-34.1); MEAN CELL HEMOGLOBIN CONCENTR. 34.5 g/dL (32.4-36.7); MEAN CELL VOLUME 96.1 fL (81.5-99.8); MEAN PLATELET VOLUME 10.3 fL (8.7-11.7); PLATELET CLUMPS FLAG 0 (0-99); PLATELET COUNT 192 10^3/uL (150-400); RED BLOOD CELL COUNT 4.34 10^6/uL (4.40-6.38)
[2016-10-24 05:15] LABS: INR 0.95 (0.83-1.16); PROTIME(PATIENT) 12.6 SEC (12.0-15.0)
[2016-10-24 05:22] LABS: ALANINE AMINOTRANSFERASE 30 IU/L (21-72); ALBUMIN 4.3 g/dL (3.5-5.0); ALKALINE PHOSPHATASE 164 IU/L (38-126); ANION GAP 15 mEq/L (8-16); ASPARTATE AMINOTRANSFERASE 36 IU/L (17-59); BILIRUBIN,TOTAL 0.7 mg/dL (0.1-1.4); BILIRUBIN-CONJUGATED 0.4 mg/dL (0.0-0.5); BILIRUBIN-UNCONJUGATED 0.3 mg/dL (0.0-1.1); CALCIUM 8.8 mg/dL (8.5-10.4); CARBON DIOXIDE 19 mEq/l (22-31); CHLORIDE 98 mEq/L (97-110); CREATININE 0.8 mg/dL (0.7-1.3); GLOMERULAR FILTRATION RATE > 60; GLUCOSE 107 mg/dL (70-100); SODIUM 132 mEq/L (134-144); TOTAL PROTEIN 7.8 g/dL (6.3-8.2)
[2016-10-24 05:26] LABS: SEDIMENTATION RATE 20 MM/HR (0-20)
[2016-10-24] MEDS ORDERED: TDAP ADULT 0.5 ML INJ (BOOSTRIX) IM ONE (05:34)
[2016-10-24 06:00] LABS: C-REACTIVE PROTEIN 131.8 mg/L (<10.0)
[2016-10-24] MEDS ORDERED: ONDANSETRON 4 MG/2 ML VIAL IVP PRN (06:39)
[2016-10-24] MEDS ORDERED: ONDANSETRON DISINTEGRATING 4 MG TAB PO PRN (06:39)
[2016-10-24] MEDS ORDERED: ALBUTEROL 60 PUFFS/8 GM MDI IH PRN (06:39)
[2016-10-24] MEDS ORDERED: LORazepam 2 MG/ML INJ IVP PRN (06:42)
--- NOTE | 2016-10-24 06:49 | PDGENHP ---
History and Physical - Chief Complaint Facial swelling - History of Present Illness 56 yo homeless M w/ hx of ETOH abuse presents with facial swelling after recent admission (discharged 10/23) where he was treated for alcohol withdrawal, mechanical fall with facial injury, and hyponatremia. Since discharge, he has noticed worsening redness and swelling of his face, particularly around his L eye. Additionally, he noticed fevers and malaise. He drinks 6 pack of beer daily and smokes 1 PPD, which he has done for 35 years. He denies other drug use. History Information - Allergies/Home Medication List Allergies/Adverse Reactions: No Known Allergies Allergy (Verified 10/24/16 04:58) Home Medications: Escitalopram Oxalate [Lexapro] 20 mg PO DAILY 10/22/16 [Last Taken 10/08/16] Esomeprazole Magnesium [Nexium] 20 mg PO BID 10/22/16 [Last Taken 10/15/16] Pregabalin [LYRICA] 100 mg PO TID 10/22/16 [Last Taken 10/22/16 11:00] I have personally reviewed and updated: family history, medical history - Past Medical History Additional medical history: Depression. ETOH abuse, withdrawal - Surgical History Reports: no pertinent surgical hx - Family History Additional family history: Adopted, does not know biological family - Social History Smoking Status: Heavy smoker Alcohol Use: Heavy (6 pack daily) Drug Use: None Review of Systems ROS: 10pt was reviewed & negative except for what was stated in HPI & below Physical Exam Temp Pulse Resp BP Pulse Ox 39.2 C H 93 20 119/70 93 10/24/16 05:52 10/24/16 05:52 10/24/16 05:52 10/24/16 05:52 10/24/16 05:52 O2 (L/minute) 2 Constitutional: uncomfortable, unkempt Eyes: other (Bilateral eduardo-orbital swelling, L>R; L eye swollen shut with significant facial erythema. Facial lacerations noted.) Ears, Nose, Mouth, Throat: moist mucous membranes, no oral mucosal ulcers Cardiovascular: no murmur, rub, or gallop, tachycardia Respiratory: no respiratory distress, rhonchi Gastrointestinal: normoactive bowel sounds, soft, non-tender abdomen Skin: warm, erythema (Facial erythema and swelling L>R) Musculoskeletal: full muscle strength, no muscle tenderness Neurologic: AAOx3, sensation intact bilaterally Psychiatric: interacting appropriately, other (Mildly somnolent but appropriate and easily arousable) Lab Data & Imaging Review 10/24/16 04:59 10/24/16 04:59 WBC 15.37 10^3/uL (3.80-9.50) H 10/24/16 04:59 RBC 4.34 10^6/uL (4.40-6.38) L 10/24/16 04:59 Hgb 14.4 g/dL (13.7-17.5) 10/24/16 04:59 POC Hgb 16.0 gm/dL (13.7-17.5) 10/24/16 04:51 Hct 41.7 % (40.0-51.0) 10/24/16 04:59 POC Hct 47 % (40-51) 10/24/16 04:51 MCV 96.1 fL (81.5-99.8) 10/24/16 04:59 MCH 33.2 pg (27.9-34.1) 10/24/16 04:59 MCHC 34.5 g/dL (32.4-36.7) 10/24/16 04:59 RDW 15.0 % (11.5-15.2) 10/24/16 04:59 Plt Count 192 10^3/uL (150-400) 10/24/16 04:59 MPV 10.3 fL (8.7-11.7) 10/24/16 04:59 Neut % (Auto) 77.8 % (39.3-74.2) H 10/24/16 04:59 Lymph % (Auto) 15.0 % (15.0-45.0) 10/24/16 04:59 [place] % (Auto) 6.1 % (4.5-13.0) 10/24/16 04:59 Eos % (Auto) 0.0 % (0.6-7.6) L 10/24/16 04:59 Baso % (Auto) 0.4 % (0.3-1.7) 10/24/16 04:59 Nucleat RBC Rel Count 0.0 % (0.0-0.2) 10/24/16 04:59 Absolute Neuts (auto) 11.96 10^3/uL (1.70-6.50) H 10/24/16 04:59 Absolute Lymphs (auto) 2.31 10^3/uL (1.00-3.00) 10/24/16 04:59 Absolute Monos (auto) 0.94 10^3/uL (0.30-0.80) H 10/24/16 04:59 Absolute Eos (auto) 0.00 10^3/uL (0.03-0.40) L 10/24/16 04:59 Absolute Basos (auto) 0.06 10^3/uL (0.02-0.10) 10/24/16 04:59 Absolute Nucleated RBC 0.00 10^3/uL (0-0.01) 10/24/16 04:59 Immature Gran % 0.7 % (0.0-1.1) 10/24/16 04:59 Immature Gran # 0.10 10^3/uL (0.00-0.10) 10/24/16 04:59 ESR 20 MM/HR (0-20) 10/24/16 04:59 PT 12.6 SEC (12.0-15.0) 10/24/16 04:59 INR 0.95 (0.83-1.16) 10/24/16 04:59 APTT 35.0 SEC (23.0-38.0) 10/24/16 04:59 VBG Lactic Acid 2.4 mmol/L (0.7-2.1) H 10/24/16 05:15 POC Sodium 132 mEq/L (134-144) L 10/24/16 04:51 Sodium 132 mEq/L (134-144) L 10/24/16 04:59 POC Potassium 3.7 mEq/L (3.3-5.0) 10/24/16 04:51 Potassium 4.0 mEq/L (3.5-5.2) 10/24/16 04:59 POC Chloride 98 mEq/L (97-110) 10/24/16 04:51 Chloride 98 mEq/L (97-110) 10/24/16 04:59 Carbon Dioxide 19 mEq/l (22-31) L 10/24/16 04:59 Anion Gap 15 mEq/L (8-16) 10/24/16 04:59 POC BUN 5 mg/dL (7-23) L 10/24/16 04:51 BUN 6 mg/dL (7-23) L 10/24/16 04:59 Creatinine 0.8 mg/dL (0.7-1.3) 10/24/16 04:59 POC Creatinine 0.9 mg/dL (0.7-1.3) 10/24/16 04:51 Estimated GFR > 60 10/24/16 04:59 Glucose 107 mg/dL (70-100) H 10/24/16 04:59 POC Glucose 112 mg/dL (70-100) H 10/24/16 04:51 Calcium 8.8 mg/dL (8.5-10.4) 10/24/16 04:59 Total Bilirubin 0.7 mg/dL (0.1-1.4) 10/24/16 04:59 Conjugated Bilirubin 0.4 mg/dL (0.0-0.5) 10/24/16 04:59 Unconjugated Bilirubin 0.3 mg/dL (0.0-1.1) 10/24/16 04:59 AST 36 IU/L (17-59) 10/24/16 04:59 ALT 30 IU/L (21-72) 10/24/16 04:59 Alkaline Phosphatase 164 IU/L (38-126) H 10/24/16 04:59 C-Reactive Protein 131.8 mg/L (<10.0) H 10/24/16 04:59 Total Protein 7.8 g/dL (6.3-8.2) 10/24/16 04:59 Albumin 4.3 g/dL (3.5-5.0) 10/24/16 04:59 Imaging Review: More pronounced STS from level of frontal subgaleal/SQ space(s) caudally to periorbital preseptal spaces (left > right) to infraorbital levels; no discrete abscess or new fracture; each globe intact, and normal retroorbital spaces. No evidence of SQ emphysema. Visualized and Interpreted Chest x-ray results: Yes Chest X-Ray results: no infiltrate Assessment & Plan Assessment: 56 yo homeless M w/ hx of ETOH abuse presents with sepsis 2/2 facial cellulitis. Plan: 1. Sepsis 2/2 facial cellulitis - 3/4 SIRS (T, HR, WBC); pre-septal involvement only with no discrete fluid collection per discussion with radiology and ED physician Dr. Glover. Precipitating factor seems to be recent fall and facial laceration. Patient with no signs of hypotension currently. - Fluid resuscitation ongoing - Vancomycin, clindamycin IV - Blood cultures - ID consult placed 2. ETOH abuse - Patient drinks 6 beers daily and has several prior episodes of withdrawal. - [facility] protocol - Monitor electrolytes carefully (BMP, Mg, Ph ordered) - MVI, folate, thiamine 3. Tobacco abuse - Smokes 1 PPD. Nicotine patch ordered. 4. Hyponatremia - Likely combination of hypovolemia and poor solute intake. - IVF, monitor BMP Diet - Regular Code - Full Ppx - LMWH Dispo - Admit to inpatient for treatment of sepsis and IV antibiotics
[2016-10-24] MEDS: ENOXAPARIN 40 MG/0.4 ML SYR SC SCH (11:00)
[2016-10-24] MEDS: FOLIC ACID 1 MG TAB PO SCH (11:01)
[2016-10-24] MEDS: NICOTINE 21 MG/24 HR PATCH TD SCH (11:01)
[2016-10-24] MEDS: MULTIVITAMINS 1 EACH TAB PO SCH (11:01)
[2016-10-24] MEDS: CLINDAMYCIN 600 MG/DEXTROSE 50 ML IV SCH ×2 (15:07→21:49)
[2016-10-24] MEDS: oxyCODONE IR 5 MG TAB PO PRN ×3 (15:15→22:56)
--- NOTE | 2016-10-24 15:31 | HOSPPROG ---
Hospitalist Progress Note Assessment/Plan: Prolonged service, direct patient care in addition to the history and physical performed by Dr. Samuel, at bedside with patient, for 31 minutes from 1:10 p.m. until 1:41 p.m., addressing the following: -patient has evidence of significant facial cellulitis affecting both eyes, preseptal on face CT, but not resulting in orbital cellulitis as his extraocular movements are completely intact without pain -suspect that the offending organism is skin mark, in the setting of his recent left anterior scalp laceration, treated with bacitracin yesterday -the progression has been particularly rapid, and he is currently on vancomycin and clindamycin, will continue -the patient does meet sepsis criteria as outlined by Dr. Samuel, including autonomic dysregulation in the setting of infection with signs consisting of leukocytosis, fever, tachycardia, clear source of infection -IV fluids have been discontinued now that the patient's situation has stabilized, to avoid worsening his periorbital edema -it should also be noted that the patient is positive for enterovirus, which can also be contributing to his persistent fever and leukocytosis as well as his general malaise symptoms -his bronchial findings on CXR are likely 2/2 smoking as well as entervirus infection -the patient presently does not demonstrate evidence of alcohol withdrawal, but he is approaching his 48 hour camacho from his last drink, continue CIWA Subjective: patient reports he is uncomfortable, eyelids painful Objective: Vital Signs Temp Pulse Resp BP Pulse Ox 36.9 C 77 20 104/62 90 L 10/24/16 15:12 10/24/16 12:00 10/24/16 12:00 10/24/16 12:00 10/24/16 12:00 PT 12.6 SEC (12.0-15.0) 10/24/16 04:59 INR 0.95 (0.83-1.16) 10/24/16 04:59 - Physical Exam Constitutional: unkempt Eyes: PERRL, anicteric sclera, EOMI, No scleral injection Ears, Nose, Mouth, Throat: other (significant periorbital edema, mild tenderness ) Cardiovascular: tachycardia, No systolic murmur, No irregularly irregular Respiratory: no respiratory distress, no rales or rhonchi, clear to auscultation Skin: other (erythema over forehead and eyelids, left scalp abrasion) Neurologic: No asterixes (mildly tremulous) Psychiatric: flat affect, other (lethargic but arousable) ICD10 Worksheet Patient Problems: Problems Problem Status Onset Alcohol withdrawal seizure Acute Alcoholic intoxication Acute Scalp contusion Acute Alcohol dependence Acute Febrile illness, acute Acute Severe sepsis Acute Diffuse cellulitis of face Acute Forehead abrasion Acute
[2016-10-24] MEDS: VANCOMYCIN HCL/NORMAL SALINE 250 ML IV SCH (18:05)
[2016-10-24] MEDS: PREGABALIN 100 MG CAP PO SCH ×2 (18:05→21:48)
[2016-10-24] MEDS: ACETAMINOPHEN 325 MG TAB PO PRN (22:04)
[2016-10-25 05:09] LABS: ANION GAP 8 mEq/L (8-16); CARBON DIOXIDE 22 mEq/l (22-31); CHLORIDE 100 mEq/L (97-110); CREATININE 0.7 mg/dL (0.7-1.3); GLOMERULAR FILTRATION RATE > 60; GLUCOSE 88 mg/dL (70-100); MAGNESIUM 1.8 mg/dL (1.6-2.3); POTASSIUM 3.8 mEq/L (3.5-5.2); SODIUM 130 mEq/L (134-144)
[2016-10-25] MEDS: CLINDAMYCIN 600 MG/DEXTROSE 50 ML IV SCH (05:43)
[2016-10-25] MEDS: oxyCODONE IR 5 MG TAB PO PRN ×3 (05:53→17:36)
[2016-10-25 06:00] LABS: % IMMATURE GRANULYOCYTES 0.9 % (0.0-1.1); ABSOLUTE IMMATURE GRANULOCYTES 0.11 10^3/uL (0.00-0.10); ADD DIFF? NO; ADD MORPH? NO; ADD SCAN? NO; ATYPICAL LYMPHOCYTE FLAG 0 (0-99); FRAGMENT RBC FLAG 20 (0-99); HEMATOCRIT 34.8 % (40.0-51.0); HEMOGLOBIN 11.7 g/dL (13.7-17.5); LEFT SHIFT FLG 70 (0-99); LIPEMIA HEMOLYSIS FLAG 80 (0-99); MEAN CELL HEMOGLOBIN CONCENTR. 33.6 g/dL (32.4-36.7); MEAN PLATELET VOLUME 10.1 fL (8.7-11.7); PLATELET CLUMPS FLAG 20 (0-99); PLATELET COUNT 193 10^3/uL (150-400); RED BLOOD CELL COUNT 3.55 10^6/uL (4.40-6.38); RED CELL DISTRIBUTION WIDTH 14.9 % (11.5-15.2)
[2016-10-25] MEDS: VANCOMYCIN HCL/NORMAL SALINE 250 ML IV SCH ×2 (06:25→17:37)
[2016-10-25] MEDS: NICOTINE 21 MG/24 HR PATCH TD SCH ×2 (07:59→12:13)
[2016-10-25] MEDS: ENOXAPARIN 40 MG/0.4 ML SYR SC SCH (07:59)
[2016-10-25] MEDS: ESCITALOPRAM OXALATE 10 MG TAB PO SCH (08:00)
[2016-10-25] MEDS: FOLIC ACID 1 MG TAB PO SCH (08:00)
[2016-10-25] MEDS: MULTIVITAMINS 1 EACH TAB PO SCH (08:00)
[2016-10-25] MEDS: PREGABALIN 100 MG CAP PO SCH ×3 (08:01→22:38)
--- NOTE | 2016-10-25 08:48 | HOSPPROG ---
Hospitalist Progress Note Assessment/Plan: Patient is a 56-year-old male with history of alcohol use who presented the emergency room with facial cellulitis. today is my 1st encounter with the patient. Chart reviewed. Discussed his care with Dr. Gillis. * facial cellulitis, Bilateral periorbital cellulitis On vancomycin Blood cultures pending Temperature of 38.5degrees yesterday ID consult in place * alcohol abuse Multivitamins, folate and vitamin Drinks 6 beers daily Monitor for any signs and symptoms of withdrawal doubtful he will quit drinking. Ordered a beer with lunch and dinner * positive for rhino virus and enterovirus on the PCR will continue airborne precautions * bilateral pneumonitis * hyponatremia likely due to alcohol use. Will follow * nicotine dependence Nicotine patch ordered * homelessness * plan. Dr. Gillis swab to a draining wound on his forehead to evaluate for MRSA Subjective: patient says that he still has good vision. But is very uncomfortable with the pressure around his eye area. Objective: Vital Signs Temp Pulse Resp BP Pulse Ox 37.3 C 93 17 143/92 H 94 10/25/16 04:00 10/25/16 04:00 10/25/16 04:00 10/25/16 04:00 10/25/16 04:00 Laboratory Results 10/25/16 04:36 10/25/16 04:36 10/24/16 10/25/16 10/26/16 05:59 05:59 05:59 Intake Total 1230 Balance 1230 PT 12.6 SEC (12.0-15.0) 10/24/16 04:59 INR 0.95 (0.83-1.16) 10/24/16 04:59 - Physical Exam Constitutional: chronically ill appearing, uncomfortable, unkempt Eyes: other ( significant swelling around both eyes above the lid area and below ) Ears, Nose, Mouth, Throat: hearing normal Cardiovascular: regular rate and rhythym Respiratory: no respiratory distress Gastrointestinal: normoactive bowel sounds Skin: warm Musculoskeletal: generalized weakness Neurologic: AAOx3 Psychiatric: interacting appropriately, not anxious ICD10 Worksheet Patient Problems: Problems Problem Status Onset Diffuse cellulitis of face Acute Forehead abrasion Acute Alcohol dependence Acute Alcohol withdrawal seizure Acute Alcoholic intoxication Acute Febrile illness, acute Acute Scalp contusion Acute Severe sepsis Acute
[2016-10-25] MEDS ORDERED: AMPICILLIN/SULBACTAM 3 GM in NS 100 ML IV SCH (10:30)
[2016-10-25] MEDS: AMPICILLIN/SULBACTAM 3 GM in NS 100 ML IV SCH ×2 (11:25→17:36)
--- NOTE | 2016-10-25 11:38 | ASMTCMCOM ---
CM Note CM Note Notes: Pt is a 56 y/o man admitted for facial cellulitis after a fall. Pt is homeless and has a hx of alcohol. Pt was just here on 10/23/14 and left AMA. Pt is on IV antibiotics for sepsis. CM met w/ pt for dispo planning. Pt reports that he drinks 6 beers daily and denies using any other substances. CM met w/ Viktoriya (P#:[phone]), patient's shoe caser through [facility]. Viktoriya reports that pt has a memory defecit and often forgets taking meds and appointments. Pt is currently seeing a psychatrist. Pt has been on wellbutrin and gabapentin in the past. Pt is diagnosed with anxiety, depression and PTSD. [facility] was hoping to conduct a neurocog evaluation. Pt reports that the last time he left AMA was because he wanted to have a cigarette. CM needs to be determined pending PT and ID consult. Date Signed: 10/25/2016 11:37 AM Electronically Signed By:Candelaria Pineda
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
[2016-10-25] MEDS: LORazepam 1 MG TAB PO PRN ×2 (12:13→19:52)
[2016-10-25] MEDS: ACETAMINOPHEN 325 MG TAB PO PRN ×2 (12:13→22:46)
[2016-10-25] MEDS: BEER 1 EACH EA PO SCH ×2 (15:09→17:43)
[2016-10-26] MEDS: AMPICILLIN/SULBACTAM 3 GM in NS 100 ML IV SCH ×5 (00:31→23:18)
[2016-10-26] MEDS: oxyCODONE IR 5 MG TAB PO PRN ×5 (03:46→21:54)
[2016-10-26 05:11] LABS: ANION GAP 7 mEq/L (8-16); CALCIUM 8.4 mg/dL (8.5-10.4); CARBON DIOXIDE 23 mEq/l (22-31); CHLORIDE 102 mEq/L (97-110); CREATININE 0.7 mg/dL (0.7-1.3); GLOMERULAR FILTRATION RATE > 60; GLUCOSE 91 mg/dL (70-100); SODIUM 132 mEq/L (134-144)
[2016-10-26] MEDS: LORazepam 1 MG TAB PO PRN ×5 (05:11→23:18)
[2016-10-26] MEDS: VANCOMYCIN HCL/NORMAL SALINE 250 ML IV SCH (05:46)
[2016-10-26] MEDS: NICOTINE 21 MG/24 HR PATCH TD SCH (08:35)
[2016-10-26] MEDS: ESCITALOPRAM OXALATE 10 MG TAB PO SCH (08:36)
[2016-10-26] MEDS: ENOXAPARIN 40 MG/0.4 ML SYR SC SCH (08:36)
[2016-10-26] MEDS: FOLIC ACID 1 MG TAB PO SCH (08:36)
[2016-10-26] MEDS: PREGABALIN 100 MG CAP PO SCH ×3 (08:36→21:02)
[2016-10-26] MEDS: MULTIVITAMINS 1 EACH TAB PO SCH (08:36)
--- NOTE | 2016-10-26 08:40 | HOSPPROG ---
Hospitalist Progress Note Assessment/Plan: Patient is a 56-year-old male with history of alcohol use who presented the emergency room with facial cellulitis. * facial cellulitis, Bilateral periorbital cellulitis On vancomycin Blood cultures show no growth Afebrile for the past 24 hours * alcohol abuse Multivitamins, folate and vitamin Drinks 6 beers daily No s/sx of withdrawal doubtful he will quit drinking. Ordered a beer with lunch and dinner * positive for rhino virus and enterovirus on the PCR will continue airborne precautions * bilateral pneumonitis * hyponatremia likely due to alcohol use. Na 132 * nicotine dependence Nicotine patch ordered * homelessness * plan. continue antibiotics as prescribed. Patient's slowly improving Subjective: Tye said he is starting to feel better today. Objective: Vital Signs Temp Pulse Resp BP Pulse Ox 37.2 C 80 22 H 149/99 H 89 L 10/26/16 07:19 10/26/16 07:19 10/26/16 07:19 10/26/16 07:19 10/26/16 07:19 Laboratory Results 10/25/16 04:36 10/26/16 04:36 10/25/16 10/26/16 10/27/16 05:59 05:59 05:59 Intake Total 1230 930 Balance 1230 930 PT 12.6 SEC (12.0-15.0) 10/24/16 04:59 INR 0.95 (0.83-1.16) 10/24/16 04:59 - Physical Exam Constitutional: not in pain, chronically ill appearing Eyes: other ( cannot visualize right eye due to significant swelling over the eyelid area /left eye with PERRLA, has significant periorbital edema above and below the eye area) Ears, Nose, Mouth, Throat: hearing normal Cardiovascular: regular rate and rhythym Respiratory: no respiratory distress Gastrointestinal: normoactive bowel sounds Skin: warm Musculoskeletal: full muscle strength Neurologic: AAOx3 Psychiatric: interacting appropriately ICD10 Worksheet Patient Problems: Problems Problem Status Onset Diffuse cellulitis of face Acute Forehead abrasion Acute Alcohol dependence Acute Alcohol withdrawal seizure Acute Alcoholic intoxication Acute Febrile illness, acute Acute Scalp contusion Acute Severe sepsis Acute
[2016-10-26] MEDS: ACETAMINOPHEN 325 MG TAB PO PRN (12:19)
[2016-10-26] MEDS: BEER 1 EACH EA PO SCH ×2 (12:20→17:59)
--- NOTE | 2016-10-26 13:48 | PCMIDPN ---
Assessment/Plan: # Bilateral Facial / periorbital cellulitis, right greater than left: Culture shows Group a strep. This is my 1st exam, but clinical history suggest improvement today as well as juan appearance of erythema. --Will discontinue vancomycin --continue Unasyn for coverage of Streptococcus -- likely needs couple more days of IV antibiotics # Rhino/enterovirus: Droplet precaution # EtOH abuse medication Unasyn 3 g IV Q 6 # 1 microbiology 10/25 wound culture: Group a strep 10/24 Blood cultures ( 2) NGTD Subjective: patient reports decreased eyelid swelling today and can see easier. Reports face is still quite painful Objective: Vital Signs Temp Pulse Resp BP Pulse Ox 37.4 C 69 20 115/63 91 L 10/26/16 11:23 10/26/16 11:23 10/26/16 11:23 10/26/16 11:23 10/26/16 11:23 Laboratory Results 10/25/16 04:36 10/26/16 04:36 10/25/16 10/26/16 10/27/16 05:59 05:59 05:59 Intake Total 1230 930 Balance 1230 930 ESR 20 MM/HR (0-20) 10/24/16 04:59 C-Reactive Protein 131.8 mg/L (<10.0) H 10/24/16 04:59 - Physical Exam General Appearance: alert, no apparent distress, other ( face with erythema over nasolabial folds over bilateral on eyes right greater than left, erythema has a juan appearance.) EENT: poor dentition, No thrush Respiratory: lungs clear, No accessory muscle use Neck: supple, No lymphadenopathy (L), No lymphadenopathy (R) Cardiac/Chest: regular rate, rhythm Extremities: No pedal edema Abdomen: non-tender, soft Male Genitalia: No piedra Skin: other ( Left forehead with excoriation from fall) Neuro/Psych: alert, normal mood/affect, oriented x 3 ICD10 Worksheet Patient Problems: Problems Problem Status Onset Diffuse cellulitis of face Acute Forehead abrasion Acute Alcohol dependence Acute Alcohol withdrawal seizure Acute Alcoholic intoxication Acute Febrile illness, acute Acute Scalp contusion Acute Severe sepsis Acute
[2016-10-26] MEDS ORDERED: ALBUTEROL 200 PUFFS/18 GM MDI IH PRN (16:30)
[2016-10-27] MEDS: oxyCODONE IR 5 MG TAB PO PRN ×5 (06:07→23:27)
[2016-10-27] MEDS: AMPICILLIN/SULBACTAM 3 GM in NS 100 ML IV SCH ×4 (06:08→23:23)
[2016-10-27] MEDS: MULTIVITAMINS 1 EACH TAB PO SCH (08:31)
[2016-10-27] MEDS: PREGABALIN 100 MG CAP PO SCH ×3 (08:31→20:51)
[2016-10-27] MEDS: ENOXAPARIN 40 MG/0.4 ML SYR SC SCH (08:32)
[2016-10-27] MEDS: THIAMINE HCL 100 MG TAB PO SCH (08:32)
[2016-10-27] MEDS: NICOTINE 21 MG/24 HR PATCH TD SCH (08:32)
[2016-10-27] MEDS: FOLIC ACID 1 MG TAB PO SCH (08:32)
[2016-10-27] MEDS: ESCITALOPRAM OXALATE 10 MG TAB PO SCH (08:32)
[2016-10-27] MEDS: LORazepam 1 MG TAB PO PRN ×3 (08:45→20:54)
[2016-10-27] MEDS ORDERED: BISACODYL 10 MG SUPP PR PRN (10:09)
[2016-10-27] MEDS ORDERED: LACTULOSE 20 GM/30 ML UDCUP PO PRN (10:09)
[2016-10-27] MEDS ORDERED: POLYETHYLENE GLYCOL 3350 17 GM PKT PO PRN (10:09)
[2016-10-27] MEDS ORDERED: MAGNESIUM HYDROXIDE 30 ML UDCUP PO PRN (10:09)
[2016-10-27] MEDS ORDERED: FLU VACC QS 2017-18 (3YR+)/PF 0.5 ML SYR (FLUARIX QUAD) IM ONE (10:16)
[2016-10-27] MEDS ORDERED: PNEUMOCOCCAL 0.5ML VACCINE VIAL IM ONE (10:16)
--- NOTE | 2016-10-27 10:22 | PCMIDPN ---
Assessment/Plan: 1. Preseptal cellulitis right greater than left/erysipelas malar area bilaterally: Forehead wound culture with group a strep. continue IV Unasyn another day, then transition to p.o. Augmentin 875 p.o. twice daily for another week. A written prescription was given to social work. They will have [facility] fill the prescription and bring the medicine to the patient tomorrow morning when he goes obviating need for him to go to the pharmacy. 2. vaccines: Patient received a Tdap while he was here. He is agreeable to a Pneumovax and flu vaccine. These have been ordered. 3. Pneumonitis likely secondary to rhino virus/enterovirus: Cough improved. Continue droplet precautions while he is here. This viral infection does not preclude him from receiving a Pneumovax or seasonal flu vaccine. 10/27/16 10:23 Subjective: Feels better. No diarrhea. Objective: Unasyn 3 g IV q.6 hours day 2 T-max 37.2degrees Vital Signs Temp Pulse Resp BP Pulse Ox 37.2 C 69 18 133/74 H 90 L 10/27/16 07:21 10/27/16 07:21 10/27/16 07:21 10/27/16 07:21 10/27/16 07:21 Laboratory Results 10/25/16 04:36 10/26/16 04:36 10/26/16 10/27/16 10/28/16 05:59 05:59 05:59 Intake Total 930 600 Balance 930 600 ESR 20 MM/HR (0-20) 10/24/16 04:59 C-Reactive Protein 131.8 mg/L (<10.0) H 10/24/16 04:59 wound cultures with group a strep - Physical Exam General Appearance: other ( looks tired.) EENT: other ( Preseptal cellulitis much better, with brick red appearance and wrinkling consistent with improvement in edema. He also has juan erythema noted on his cheeks and malar area bilaterally. Superficial wound left forehead that is scabbed over without evidence of secondary bacterial infection. The orbits are not involved whatsoever.), No thrush Respiratory: wheezing ICD10 Worksheet Patient Problems: Problems Problem Status Onset Diffuse cellulitis of face Acute Forehead abrasion Acute Alcohol dependence Acute Alcohol withdrawal seizure Acute Alcoholic intoxication Acute Febrile illness, acute Acute Scalp contusion Acute Severe sepsis Acute
[2016-10-27] MEDS: SENNOSIDES/DOCUSATE SODIUM TAB PO SCH ×2 (10:39→21:20)
[2016-10-27] MEDS: BEER 1 EACH EA PO SCH ×2 (13:13→18:03)
--- NOTE | 2016-10-27 13:13 | HOSPPROG ---
Hospitalist Progress Note Assessment/Plan: Patient is a 56-year-old male with history of alcohol use who presented the emergency room with facial cellulitis. First encounter, chart reviewed. D/W Dr Barker. * facial cellulitis, Bilateral periorbital cellulitis IV Unasyn, then transition to PO Augmentin Blood cultures show no growth Afebrile for the past 24 hours * alcohol abuse Multivitamins, folate and vitamin Drinks 6 beers daily No s/sx of withdrawal doubtful he will quit drinking. Beer with lunch and dinner * positive for rhino virus and enterovirus on the PCR will continue airborne precautions * bilateral pneumonitis * hyponatremia likely due to alcohol use. * nicotine dependence Nicotine patch ordered * homelessness * plan. continue antibiotics as prescribed. Patient's slowly improving Plan for DC in am. Subjective: Feeling ill. No specific complaints. Objective: Vital Signs Temp Pulse Resp BP Pulse Ox 36.9 C 65 18 140/75 H 90 L 10/27/16 12:00 10/27/16 12:00 10/27/16 12:00 10/27/16 12:00 10/27/16 12:00 Microbiology 10/25/16 10:19 MRSA Culture - Final Head - Swab Streptococcus Pyogenes Grp A Laboratory Results 10/25/16 04:36 10/26/16 04:36 10/26/16 10/27/16 10/28/16 05:59 05:59 05:59 Intake Total 930 600 Balance 930 600 PT 12.6 SEC (12.0-15.0) 10/24/16 04:59 INR 0.95 (0.83-1.16) 10/24/16 04:59 - Physical Exam Constitutional: appears nourished, not in pain, chronically ill appearing Eyes: PERRL, anicteric sclera, EOMI Ears, Nose, Mouth, Throat: moist mucous membranes, hearing normal, ears appear normal Cardiovascular: regular rate and rhythym, No JVD, No edema Respiratory: no respiratory distress, no rales or rhonchi, reduced air movement Gastrointestinal: No tenderness, No ascites, No distension Skin: warm, no induration, erythema Musculoskeletal: normal joint ROM, no joint effusions, generalized weakness Neurologic: AAOx3 Psychiatric: not anxious, not encephalopathic, thought process linear ICD10 Worksheet Patient Problems: Problems Problem Status Onset Alcohol withdrawal seizure Acute Alcoholic intoxication Acute Scalp contusion Acute Alcohol dependence Acute Febrile illness, acute Acute Severe sepsis Acute Diffuse cellulitis of face Acute Forehead abrasion Acute
[2016-10-28] MEDS ORDERED: AMOXICILLIN/CLAVULANATE POT 875/125 MG TAB PO SCH
[2016-10-28] MEDS: LORazepam 1 MG TAB PO PRN ×3 (01:29→14:30)
[2016-10-28] MEDS: AMPICILLIN/SULBACTAM 3 GM in NS 100 ML IV SCH ×2 (05:13→11:51)
[2016-10-28] MEDS: oxyCODONE IR 5 MG TAB PO PRN ×3 (05:20→11:55)
[2016-10-28] MEDS: MULTIVITAMINS 1 EACH TAB PO SCH (08:06)
[2016-10-28] MEDS: THIAMINE HCL 100 MG TAB PO SCH (08:06)
[2016-10-28] MEDS: PREGABALIN 100 MG CAP PO SCH (08:06)
[2016-10-28] MEDS: NICOTINE 21 MG/24 HR PATCH TD SCH (08:07)
[2016-10-28] MEDS: FOLIC ACID 1 MG TAB PO SCH (08:07)
[2016-10-28] MEDS: ENOXAPARIN 40 MG/0.4 ML SYR SC SCH (08:07)
[2016-10-28] MEDS: SENNOSIDES/DOCUSATE SODIUM TAB PO SCH ×2 (08:07→08:30)
[2016-10-28] MEDS: ESCITALOPRAM OXALATE 10 MG TAB PO SCH (08:29)
[2016-10-28 11:21] VITALS: BP 131/85; PULSE 74; RESP 18; TEMP 98.6; O2SAT 96
[2016-10-28] MEDS: BEER 1 EACH EA PO SCH (14:20)
--- NOTE | 2016-10-28 14:49 | GDS ---
[f rep st] DISCHARGE SUMMARY DISCHARGE DIAGNOSES: 1. Preseptal cellulitis of the right and left malleolar area. 2. Pneumonitis. 3. Chronic alcohol abuse. 4. Rhinovirus. 5. Enterovirus. 6. Hyponatremia. 7. Nicotine dependency. 8. Homelessness. CONSULTATIONS: Infectious Disease. STUDIES AND PROCEDURES DONE: CT of the face. PHYSICAL EXAM: GENERAL: The patient is alert. VITAL SIGNS: Afebrile 37, pulse 74, respiratory rat e is 18, blood pressure is 131/85, saturating 96% on room air. I have seen and evaluated the patient on the day of discharge. HOSPITAL COURSE: The patient is a 56-year-old homeless male who presented to the emergency room with complaints of facial erythema. He was evaluated and diagnosed with: 1. Facial cellulitis. This is bilateral in setting the patient has been treated with IV Unasyn duri ng this hospitalization, and transitioned to oral Augmentin. The oral Augmentin prescription has bee n filled and handed to the patient prior to disposition. Follow up will be at [facility]. 2. Alcohol abuse. The patient states he has no desire to discontinue his alcohol consumption and he has not gone through withdrawal during this hospitalization. 3. Rhinovirus and enterovirus placement for precautions during this hospital course. 4. Bilateral pneumonitis this is stable. 5. Hyponatremia. This is in the setting of hypovolemia and has resolved. 6. Homelessness. The patient will be discharged to return to the street. DISPOSITION: Patient will be discharged with a prescription for Augmentin. [facility] at [facility]. There are no pending studies. DISCHARGE MEDICATIONS: Again, the patient has been handed a prescription filled full of Augmentin 87 5 mg b.i.d., #14. He has also been given a paper prescription for oxycodone IR 5 mg #10. I spent greater than 35 minutes in the care, coordination, and management of this patient's dispositi on. /[id number]/MODL
--- NOTE | 2016-10-29 17:06 | ASMTCMCOM ---
CM Note CM Note Notes: CM spoke w/ Susan Barker, infectious disease provider and she reports that he will be ready to discharge tomorrow. Pt will be prescribed Argmenhn oral and instructed to take it twice a day once he is discharged. CM left a msg for his shelter case manager Viktoriya, at [facility] to inform her of pts discharge. CM met w/ pt for dispo planning. Pt reports that he is having pain and requesting pain meds. CM notified [facility]IT[facility] Cano. CM available for changes. Date Signed: 10/27/2016 11:04 AM Electronically Signed By:Candelaria Pineda
--- NOTE | 2016-10-29 17:08 | ASMTCMCOM ---
CM Note CM Note Notes: Pt is being discharged today. CM tubed over prescription that provider wanted pt to have in hand prior to discharge. CM using [facility] to fill prescription. The cost is $10.62. Pt is homeless and indigent. Pt will be discharging to the streets. CM met w/ pt for dispo planning. Pt reports that he does not stay at the shelters. ETOH education provided. CM spoke to pt about [employer]. Pt reports that it does not work for him. 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 Pt is looking forward to getting into more permanent housing and reports that he has a housing voucher. CM available for changes. Date Signed: 10/28/2016 11:24 AM Electronically Signed By:Candelaria Pineda
--- NOTE | 2016-11-01 12:44 | PQFORM ---
PHYSICIAN QUERY FORM Needs Your Response This query form is being sent to you to assure this patient record is coded properly. Please respond to the question below: CORRECTION OFFICER REFORMATORY QUESTION: Dr Moreno Sepsis was mentioned in tis patients chart documentation but not mentioned in the Discharge Summary. Please clarify whether this patient did have Sepsis. _X_ Yes ___ No ___ Unable to Determine ___ Other ( Please document ) Thank You Milvia FOLEY Benefits Specialist INSTRUCTIONS FOR RESPONSE: Answer question by clicking on the "Edit Document" button. Move cursor to area below the stars. When complete, hit "Save." Click on the "Sign" button, then click "Sign" again. Type in your PIN and hit "Enter." MTDD
== END 2016-10-28 14:40 | disposition home or self-care (01) | DRG 871 ==
LOC: EDUNIT# → F3E 08:53
PROVIDERS: ADMIT Student in an Organized Health Care Education/Training Program; ATTEND Student in an Organized Health Care Education/Training Program
DX: A41.9 Sepsis, unspecified organism (principal); L03.211 Cellulitis of face; J12.89 Other viral pneumonia; E87.1 Hypo-osmolality and hyponatremia; F10.10 Alcohol abuse, uncomplicated; Z98.1 Arthrodesis status; F17.210 Nicotine dependence, cigarettes, uncomplicated; Z23 Encounter for immunization
CPT/HCPCS: 82947-QW; 96365; 97110-GP; 97116-GP; 97161-GP; G0009; J0295; J1650; J3370; Q9967

== ENCOUNTER 2017-02-12 07:23 | Emergency (ER) | payer MEDICAID ==
[2017-02-12 07:40] VITALS: RESP 18; O2SAT 94
[2017-02-12] MEDS ORDERED: LORazepam 2 MG/ML INJ ONE (07:48)
[2017-02-12] MEDS ORDERED: LORazepam 2 MG/ML INJ IVP ONE (07:51)
--- NOTE | 2017-02-12 07:58 | EDPHY ---
H & P Stated Complaint: etoh seizure, from prison HPI/ROS: CHIEF COMPLAINT: Withdrawal seizure HISTORY OF PRESENT ILLNESS: The patient is a homeless 56 y/o male with a history withdrawal seizures presenting to the ED after a witnessed seizure at the [facility]. He usually drinks a couple 40s a day or a pint of vodka. He has not had much to drink today. He reports being disoriented. He indicates a hematoma to the occipital area of his head. He is unsure if he fell or how he hit his head. He denies any other pain or associated symptoms REVIEW OF SYSTEMS: A ten point review of systems was performed and is negative with the exception of the items mentioned in the HPI. Past medical history: 1. Withdrawal seizures 2. Alcoholism 3. GERD Past surgical history: 1. Cervical spine surgery Past medical records reviewed including 10/22/16 admission Family history: Non-contributory Social history: Homeless, alcohol use, pack a day smoker General Appearance: Alert. Vital signs reviewed. BP 140/82, HR 1106. Head: Darling-sized cephalohematoma to the right occiput. Eyes: Pupils equal and round, no conjunctival injection, no discharge. Anicteric. ENT, Mouth: Mucous membranes are moist, no oropharyngeal erythema or edema. No tongue injury. Neck: No lymphadenopathy, supple. Nontender over cervical spine. Respiratory: Breath sounds distant but clear bilaterally; no wheezes, rales, or rhonchi. Cardiovascular: Regular rate and rhythm; no murmur, rub, or gallop. Gastrointestinal: Abdomen is soft and nontender, no masses or organomegaly, bowel sounds normal. Skin: Warm and dry, no rashes on exposed skin, normal color. Back: Nontender to palpation over the thoracolumbar spine. No CVAT. Extremities: No lower extremity edema, no calf tenderness or swelling. Neurological: Alert and oriented. Moving all four extremities easily and equally. Tongue midline. PERRL. EOMI. Facial expressions symmetric. Hearing intact to spoken voice. Strength is 5 over 5 bilaterally with testing of all major motor groups. Sensation is intact to light touch over all 4 extremities. Psychiatric: Normal affect. - Personal History Current Tetanus Diphtheria and Acellular Pertussis (TDAP): Yes Tetanus Vaccine Date: 2014 - Medical/Surgical History Hx Asthma: No Hx Chronic Respiratory Disease: No Hx Diabetes: No Hx Cardiac Disease: No Hx Renal Disease: No Hx Cirrhosis: No Hx Alcoholism: Yes Hx HIV/AIDS: No Hx Splenectomy or Spleen Trauma: No Other PMH: ETOH ABUSE, ETOH w/d seizures, gerd, cervical spine surgery - Social History Smoking Status: Heavy smoker Constitutional: Initial Vital Signs Temperature (C) 36.9 C 02/12/17 07:36 Heart Rate 106 H 02/12/17 07:36 Respiratory Rate 18 02/12/17 07:36 Blood Pressure 140/82 H 02/12/17 07:36 O2 Sat (%) 94 02/12/17 07:36 O2 Delivery Mode Room Air Allergies/Adverse Reactions: No Known Allergies Allergy (Verified 10/24/16 04:58) Home Medications: Medication Instructions Recorded Escitalopram Oxalate [Lexapro] 20 mg PO DAILY 10/24/16 Pregabalin [LYRICA] 100 mg PO TID 10/24/16 Acetaminophen [Tylenol 325mg (*)] 650 mg PO Q4HRS PRN tab 10/28/16 Amoxicillin/Clavulanate Pot 875 mg PO BID #14 tab 10/28/16 [Augmentin 875 MG TAB (*)] Folic Acid [Folic Acid 1 MG (*)] 1 mg PO DAILY tab 10/28/16 Multivitamins [Multivitamin (*)] 1 each PO DAILY tab 10/28/16 Nicotine [Nicoderm Cq 21 mg (*)] 21 mg TD DAILY patch 10/28/16 Polyethylene Glycol 3350 [Miralax 17 gm PO DAILY PRN pkt 10/28/16 17 gm (*)] Thiamine HCl [Vitamin B-1] 100 mg PO DAILY tab 10/28/16 oxyCODONE IR [Oxycodone Ir (*)] 5 mg PO Q4 #10 tab 10/28/16 Medical Decision Making - Diagnostics Imaging: Discussed imaging studies w/ home economist consumer service Radiologist, I viewed and interpreted images myself ED Course/Re-evaluation: Study: CT of the head Indication: Cephalohematoma, no memory of fall Results: CT scan of the head was obtained. The results of the study are: similar to previous CTs internally, cephalohematoma to right occipital. The study was read by the radiologist, Dr. Mace. I viewed the images myself on the PACS system. His CT is negative. His seizure is likely due to withdrawal as he has a history of withdrawal seizures and is currently in withdrawal. I offered to send him to the [facility] to continue withdrawal safely. He refused multiple times and requests to be released. He is not intoxicated or altered. I do not suspect an underlying seizure disorder, infection, or electrolyte disorder. - Data Points Laboratory Results: Laboratory Results 02/12/17 07:40 Medications Given: Discontinued Medications Chlordiazepoxide HCl (Librium) 50 mg PO EDNOW ONE Stop: 02/12/17 09:57 Last Admin: 02/12/17 10:02 Dose: 50 mg Chlordiazepoxide HCl (Librium) 50 mg PO EDNOW ONE Stop: 02/12/17 09:57 Last Admin: 02/12/17 10:03 Dose: Not Given Lorazepam (Ativan Injection) 1 mg IVP EDNOW ONE Stop: 02/12/17 07:52 Last Admin: 02/12/17 07:52 Dose: 1 mg Departure - Departure Disposition: Home, Routine, Self-Care Clinical Impression: Alcohol withdrawal seizure Qualifiers: Complication of substance-induced condition: uncomplicated Qualified Code(s): F10.230 - Alcohol dependence with withdrawal, uncomplicated Condition: Good Instructions: Alcohol Withdrawal (ED) Referrals: [facility],. [Clinic] - As per Instructions Report Scribed for: Kaitlin Rachel Report Scribed by: Melanie Easley Date of Report: 02/12/17 Time of Report: 08:41 Physician Review and Approval Statement: 02/12/17 07:58 Portions of this note were transcribed by the biomedical equipment support specialist. I, Dr. Kaitlin Rachel, personally performed the history, physical exam, and medical decision- making; and confirmed the accuracy of the information in the transcribed note.
[2017-02-12 08:10] LABS: PLATELET COUNT 310 10^3/uL (150-400)
[2017-02-12] MEDS ORDERED: chlordiazePOXIDE 25 MG CAP PO ONE ×2 (09:56)
[2017-02-12 10:07] VITALS: BP 129/70; PULSE 80; TEMP 97.9
== END 2017-02-12 10:07 | disposition home or self-care (01) ==
LOC: EDUNIT#
DX: G40.909 Epilepsy, unspecified, not intractable, without status epilepticus (principal); F10.230 Alcohol dependence with withdrawal, uncomplicated; F17.200 Nicotine dependence, unspecified, uncomplicated
CPT/HCPCS: 96374; G0480; J2060

== ENCOUNTER 2017-02-15 19:39 | Emergency (ER) | payer MEDICAID ==
--- NOTE | 2017-02-15 19:48 | EDPHY ---
H & P Smoking Status: Heavy smoker Time Seen by Provider: 02/15/17 19:39 HPI/ROS: CHIEF COMPLAINT: He can't walk HISTORY OF PRESENT ILLNESS: Patient admits to alcohol today. He was found by the [facility] unable to walk. He says he is cold. The denies any other medical complaints. He told the paramedics he had a seizure yesterday and hit his head but denies headache today. Says he was drinking rum, which is his typical drink. REVIEW OF SYSTEMS: Eye: no change in vision ENT: no sore throat Cardiac: no chest pain or syncope Pulmonary: no cough or SOB Abdomen: no vomiting, diarrhea, abdominal pain Musculoskeletal: no back pain Skin: no rash Neuro: no headache, seizure yesterday Constitutional: no fever : no urinary symptoms A comprehensive 10 point review of systems is otherwise negative aside from elements mentioned in the history of present illness. PAST MEDICAL HISTORY: Alcoholism and seizure disorder, depression, high cholesterol. Cervical and lumbar spine surgeries. Social history: Recent copious alcohol use General Appearance: Alert and conversant, cooperative. Eyes: No scleral icterus. ENT, Mouth: Normal mucous membranes. Respiratory: Normal respiratory effort, breath sounds equal, lungs are clear to auscultation. Cardiovascular: Regular rate and rhythm. Gastrointestinal: Abdomen is soft and non tender. Neurological: Slurred speech, follows commands, moves all 4 extremities. Answers questions appropriately. Skin: Warm and dry, no rashes. 2 mm left forehead abrasion. Musculoskeletal: No extremity bony tenderness and no spinal tenderness. Psychiatric: Not agitated. Emergency Department course/MDM: Presentation consistent with severe alcohol intoxication. Temperature 33-34.5 degrees rectally, John Hugger applied. Plan for active rewarming, serial clinical examinations, detox when clinically sober enough. Signed out to Freddy at 2100. (Velasquez Saunders) Constitutional: Initial Vital Signs Temperature (C) 34.5 C L 02/15/17 19:49 Heart Rate 88 02/15/17 19:49 Respiratory Rate 18 02/15/17 19:49 Blood Pressure 160/57 H 02/15/17 19:49 O2 Sat (%) 94 02/15/17 19:49 O2 Delivery Mode Room Air O2 (L/minute) 2 Allergies/Adverse Reactions: No Known Allergies Allergy (Verified 10/24/16 04:58) Home Medications: Medication Instructions Recorded Escitalopram Oxalate [Lexapro] 20 mg PO DAILY 10/24/16 Pregabalin [LYRICA] 100 mg PO TID 10/24/16 Acetaminophen [Tylenol 325mg (*)] 650 mg PO Q4HRS PRN tab 10/28/16 Amoxicillin/Clavulanate Pot 875 mg PO BID #14 tab 10/28/16 [Augmentin 875 MG TAB (*)] Folic Acid [Folic Acid 1 MG (*)] 1 mg PO DAILY tab 10/28/16 Multivitamins [Multivitamin (*)] 1 each PO DAILY tab 10/28/16 Nicotine [Nicoderm Cq 21 mg (*)] 21 mg TD DAILY patch 10/28/16 Polyethylene Glycol 3350 [Miralax 17 gm PO DAILY PRN pkt 10/28/16 17 gm (*)] Thiamine HCl [Vitamin B-1] 100 mg PO DAILY tab 10/28/16 oxyCODONE IR [Oxycodone Ir (*)] 5 mg PO Q4 #10 tab 10/28/16 Medical Decision Making ED Course/Re-evaluation: 1235AM: This patient is now sober. He is ambulatory with a stable gait. He has no further complaints. He will be discharged to the [facility]. His stairs nail normal. He was here in emergency room for over 5 hr sleeping and metabolizing his alcohol and getting warm. (Jann Hester) Differential Diagnosis: Differential for weakness considered including but not limited to intoxication, hypothermia, metabolic abnormality, stroke, seizure. (Velasquez Saunders) Other Provider: [id number] care assumed by me from Dr. Saunders pending warmth and ability to ambulate for [facility]. 22:10 patient side out to Dr. Hester pending improvement body temperature and sobriety. (Ross Hayes) Departure - Departure Disposition: Home, Routine, Self-Care Clinical Impression: Alcoholic intoxication Qualifiers: Complication of substance-induced condition: uncomplicated Qualified Code(s): F10.920 - Alcohol use, unspecified with intoxication, uncomplicated Hypothermia Qualifiers: Encounter type: initial encounter Qualified Code(s): T68.XXXA - Hypothermia, initial encounter Condition: Fair Instructions: Alcohol Intoxication (ED) Referrals: [facility],. [Clinic] - As per Instructions
[2017-02-15 19:53] VITALS: RESP 18
[2017-02-15 23:48] VITALS: BP 101/56; PULSE 102; TEMP 98.6; O2SAT 90
[2017-02-16] MEDS ORDERED: CHLORDIAZEPOXIDE 25MG PREPK#6 BTL TAKEHOME ONE (00:36)
[2017-02-16] MEDS ORDERED: chlordiazePOXIDE 25 MG CAP PO ONE (00:41)
== END 2017-02-16 00:59 | disposition home or self-care (01) ==
LOC: EDUNIT#
DX: F10.920 Alcohol use, unspecified with intoxication, uncomplicated (principal); T68.XXXA Hypothermia, initial encounter; F17.200 Nicotine dependence, unspecified, uncomplicated; X31.XXXA Exposure to excessive natural cold, initial encounter

== ENCOUNTER 2017-02-22 18:07 | Emergency (ER) | payer MEDICAID ==
--- NOTE | 2017-02-22 18:10 | EDPHY ---
H & P HPI/ROS: CHIEF COMPLAINT: Intoxication HISTORY OF PRESENT ILLNESS: The patient is a 48-year-old homeless man who [place] the park [place] alcohol by police. He was not able to ambulate when they tried to taken to the [facility]. There for they called paramedics who brought him here the patient has no complaints. He has been seen here several times before for the same. He denies any trauma. REVIEW OF SYSTEMS: Constitutional: denies: chills, fever, recent illness, recent injury EENTM: denies: blurred vision, double vision, nose congestion Respiratory: denies: cough, shortness of breath Cardiac: denies: chest pain, irregular heart rate, lightheadedness, palpitations Gastrointestinal/Abdominal: denies: abdominal pain, diarrhea, nausea, vomiting, blood streaked stools Genitourinary: denies: dysuria, frequency, hematuria, pain Musculoskeletal: denies: joint pain, muscle pain Skin: denies: lesions, rash, jaundice, bruising Neurological: denies: headache, numbness, paresthesia, tingling, dizziness, weakness Hematologic/Lymphatic: denies: blood clots, easy bleeding, easy bruising Immunologic/allergic: denies: HIV/AIDS, transplant EXAM: GENERAL: Disheveled HEAD: Atraumatic, normocephalic. EYES: Pupils equal round and reactive to light, extraocular movements intact, sclera anicteric, conjunctiva are normal. ENT: TMs normal, nares patent, oropharynx clear without exudates. Moist mucous membranes. NECK: Normal range of motion, supple without lymphadenopathy or JVD. LUNGS: Breath sounds clear to auscultation bilaterally and equal. No wheezes rales or rhonchi. HEART: Regular rate and rhythm without murmurs, rubs or gallops. ABDOMEN: Soft, nontender, normoactive bowel sounds. No guarding, no rebound. No masses appreciated. BACK: No CVA tenderness, no spinal tenderness, step-offs or deformities EXTREMITIES: Normal range of motion, no pitting or edema. No clubbing or cyanosis. NEUROLOGICAL: Cranial nerves II through XII grossly intact. Normal speech, normal gait. 5/5 strength, normal movement in all extremities, normal sensation PSYCH: Normal mood, normal affect. SKIN: Dirty, Warm, dry, normal turgor, no visible rashes or lesions. Source: Patient, EMS Exam Limitations: Intoxication - Personal History Tetanus Vaccine Date: 2014 - Medical/Surgical History Hx Asthma: No Hx Chronic Respiratory Disease: No Hx Diabetes: No Hx Cardiac Disease: No Hx Renal Disease: No Hx Cirrhosis: No Hx Alcoholism: Yes Hx HIV/AIDS: No Hx Splenectomy or Spleen Trauma: No Other PMH: ETOH ABUSE, ETOH w/d seizures, depression, gerd, cervical spine surgery, lumbar spine sgy - Family History Significant Family History: No pertinent family hx - Social History Smoking Status: Heavy smoker Alcohol Use: Heavy Drug Use: Marijuana Constitutional: Initial Vital Signs Temperature (C) 36.3 C 02/22/17 18:07 Heart Rate 75 02/22/17 18:07 Respiratory Rate 14 02/22/17 18:07 Blood Pressure 130/82 H 02/22/17 18:07 O2 Sat (%) 91 L 02/22/17 18:07 O2 Delivery Mode Room Air Allergies/Adverse Reactions: No Known Allergies Allergy (Verified 10/24/16 04:58) Home Medications: Medication Instructions Recorded Pregabalin [LYRICA] 100 mg PO TID 10/24/16 Folic Acid [Folic Acid 1 MG (*)] 1 mg PO DAILY tab 10/28/16 Multivitamins [Multivitamin (*)] 1 each PO DAILY tab 10/28/16 Thiamine HCl [Vitamin B-1] 100 mg PO DAILY tab 10/28/16 Unobtainable 10/31/16 Medical Decision Making ED Course/Re-evaluation: 8:45 p.m. the patient is able to ambulate with minimal assistance. Will discharge him to the [facility] with Librium protocol. Patient agrees with this plan. He denies injuries. Differential Diagnosis: Partial list of the Differential diagnosis considered include but were not limited to; intoxication, polysubstance abuse and although unlikely based on the history and physical exam, I also considered withdrawal, head injury. - Data Points Medications Given: Discontinued Medications Chlordiazepoxide (Librium 25 Mg Prepack#6) 1 btl TAKEHOME EDNOW ONE Stop: 02/22/17 20:46 Last Admin: 02/22/17 20:51 Dose: 1 btl Departure - Departure Disposition: Home, Routine, Self-Care Clinical Impression: Alcoholic intoxication Qualifiers: Complication of substance-induced condition: uncomplicated Qualified Code(s): F10.920 - Alcohol use, unspecified with intoxication, uncomplicated Condition: Fair Instructions: Chlordiazepoxide (By mouth), Alcohol Intoxication (ED) Referrals: Patient,NotPresent [Unknown] - As per Instructions [facility],. [Clinic] - As per Instructions
[2017-02-22] MEDS ORDERED: CHLORDIAZEPOXIDE 25MG PREPK#6 BTL TAKEHOME ONE (20:45)
[2017-02-22 20:56] VITALS: BP 117/74; PULSE 84; RESP 18; TEMP 97.5; O2SAT 92
== END 2017-02-22 20:54 | disposition home or self-care (01) ==
LOC: EDUNIT#
DX: F10.920 Alcohol use, unspecified with intoxication, uncomplicated (principal); F17.200 Nicotine dependence, unspecified, uncomplicated

== ENCOUNTER 2017-03-08 00:31 | Emergency (ER) | payer MEDICAID ==
[2017-03-08 00:38] VITALS: BP 138/80; PULSE 89; RESP 18; TEMP 98.2; O2SAT 95
--- NOTE | 2017-03-08 00:38 | EDPHY ---
H & P HPI/ROS: HPI CHIEF COMPLAINT: Left ankle wound. HISTORY OF PRESENT ILLNESS: This patient very pleasant 48-year-old male he presents emergency room by EMS for excoriation of skin to the left lateral ankle malleolus. Patient is homeless. He drinks alcohol daily. He is an alcoholic. He states his boot is been rubbing up against the left lateral ankle. There is no redness, no drainage, no fever. There is no signs of infection. This appears to be skin breakdown from friction of his boot against his left lateral malleolus. Past Medical History: No significant medical history except for daily alcohol. , traumatic brain injury, hyponatremia Past Surgical History: Cervical fusion Social History: Homeless, daily alcohol use. Family History: Noncontributory ROS REVIEW OF SYSTEMS: A comprehensive 10 point review of systems is otherwise negative aside from elements mentioned in the history of present illness. Exam Constitutional triage nursing summary reviewed, vital signs reviewed, awake/ alert. Eyes normal conjunctivae and sclera, EOMI, PERRLA. HENT normal inspection, atraumatic, moist mucus membranes, no epistaxis, neck supple/ no meningismus, no raccoon eyes. Respiratory clear to auscultation bilaterally, normal breath sounds, no respiratory distress, no wheezing. Cardiovascular rate normal, regular rhythm, no murmur, no edema, distal pulses normal. Gastrointestinal soft, non-tender, no rebound, no guarding, normal bowel sounds, no distension, no pulsatile mass. Genitourinary no CVA tenderness. Musculoskeletal left lower extremity: Left lateral ankle left lateral malleolus there are skin breakdown consistent with friction from rubbing up against his boot. There is no signs of infection but there is no redness, drainage or pus, no cellulitis. Nontender palpation. no midline vertebral tenderness, full range of motion, no calf swelling, no tenderness of extremities , no meningismus, good pulses, neurovascularly intact. Skin pink, warm, & dry, no rash, skin atraumatic. Neurologic awake, alert and oriented x 3, AAOx3, moves all 4 extremities equally, motor intact, sensory intact, CN II-XII intact, normal cerebellar, normal vision, normal speech. Psychiatric normal mood/affect. Heme/Lymph/Immune no lymphadenopathy. Differential Diagnosis: Includes but is not limited to in a particular order friction wound rubbing his Ankle [place], skin breakdown, abrasion., cellulitis, abscess. Medical Decision Making:Plan for this patient will place a wound dressing. Went over wound care instructions. Went over return precautions. Dressing applied. Return precautions discussed. He is comfortable discharge planning. Source: Patient, EMS - Personal History Tetanus Vaccine Date: 2014 - Medical/Surgical History Hx Asthma: No Hx Chronic Respiratory Disease: No Hx Diabetes: No Hx Cardiac Disease: No Hx Renal Disease: No Hx Cirrhosis: No Hx Alcoholism: Yes Hx HIV/AIDS: No Hx Splenectomy or Spleen Trauma: No Other PMH: ETOH ABUSE, ETOH w/d seizures, depression, gerd, cervical spine surgery, lumbar spine sgy - Social History Smoking Status: Heavy smoker Allergies/Adverse Reactions: No Known Allergies Allergy (Verified 10/24/16 04:58) Home Medications: Medication Instructions Recorded Pregabalin [LYRICA] 100 mg PO TID 10/24/16 Folic Acid [Folic Acid 1 MG (*)] 1 mg PO DAILY tab 10/28/16 Multivitamins [Multivitamin (*)] 1 each PO DAILY tab 10/28/16 Thiamine HCl [Vitamin B-1] 100 mg PO DAILY tab 10/28/16 Unobtainable 10/31/16 Departure - Departure Disposition: Home, Routine, Self-Care Clinical Impression: Callous ulcer Qualifiers: Non-pressure ulcer stage: limited to breakdown of skin Qualified Code(s): L98.491 - Non-pressure chronic ulcer of skin of other sites limited to breakdown of skin Condition: Good Instructions: Wound Healing and Your Diet (ED) Additional Instructions: 1. Make sure to keep her ankle wound clean, dry and protected. 2. Watch for signs of infection this includes redness, drainage or pus. Referrals: NONE *PRIMARY CARE P,. [Primary Care Provider] - As per Instructions
== END 2017-03-08 00:44 | disposition home or self-care (01) ==
LOC: EDUNIT#
DX: L98.491 Non-pressure chronic ulcer of skin of other sites limited to breakdown of skin (principal); F17.200 Nicotine dependence, unspecified, uncomplicated

== ENCOUNTER 2017-03-08 19:39 | Emergency (ER) | payer MEDICAID ==
[2017-03-08 20:20] VITALS: RESP 16; TEMP 97.9
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
[2017-03-08 22:54] VITALS: BP 144/74; PULSE 74; O2SAT 91
[2017-03-08] MEDS ORDERED: CHLORDIAZEPOXIDE 25MG PREPK#6 BTL TAKEHOME ONE (23:53)
== END 2017-03-09 00:13 | disposition home or self-care (01) ==
LOC: EDUNIT#
DX: F10.920 Alcohol use, unspecified with intoxication, uncomplicated (principal); F17.200 Nicotine dependence, unspecified, uncomplicated; Z59.0 Homelessness

== ENCOUNTER 2017-03-12 03:03 | Emergency (ER) | payer MEDICAID ==
[2017-03-12] MEDS ORDERED: NS 1,000 ML IV ONE (03:05)
--- NOTE | 2017-03-12 03:11 | EDPHY ---
H & P HPI/ROS: HPI CHIEF COMPLAINT: Alcohol Intoxication , cold exposure HISTORY OF PRESENT ILLNESS: This patient is a 56-year-old male, well known to myself as well as the emergency room, he is homeless, drinks alcohol daily. Has a history of alcoholism. He presents emergency room by EMS for being cold. According to EMS he was outside in the cold for prolonged period of time. He now presents emergency room with cold extremities. He otherwise has no complaint. Smells of alcohol and appears intoxicated. Past Medical History: Daily alcohol use, alcoholism Past Surgical History: Recent surgery Social History: Homeless daily alcohol use Family History: Noncontributory ROS REVIEW OF SYSTEMS: A comprehensive 10 point review of systems is otherwise negative aside from elements mentioned in the history of present illness. Exam Constitutional Intoxicated, triage nursing summary reviewed, vital signs reviewed, Sleepy, smells of alcohol Eyes normal conjunctivae and sclera, horizontal beating nystagmus consistent acute alcohol intoxication, otherwise pupils equal and react to light HENT normal inspection, atraumatic, moist mucus membranes, no epistaxis, neck supple/ no meningismus, no raccoon eyes. Respiratory clear to auscultation bilaterally, normal breath sounds, no respiratory distress, no wheezing. Cardiovascular rate normal, regular rhythm, no murmur, no edema, distal pulses normal. Gastrointestinal soft, non-tender, no rebound, no guarding, normal bowel sounds, no distension, no pulsatile mass. Genitourinary no CVA tenderness. Musculoskeletal no midline vertebral tenderness, full range of motion, no calf swelling, no tenderness of extremities, no meningismus, good pulses, neurovascularly intact. All 4 extremities are cool to palpation. Delayed cap refill in the lower extremities. No blisters. No skin swelling. No mottling. Skin pink, warm, & dry, no rash, skin atraumatic. Neurologic sleepy, intoxicated with alcohol,, alert and oriented x 3, AAOx3, moves all 4 extremities equally, motor intact, sensory intact, CN II-XII intact , , normal vision, normal speech. Psychiatric normal mood/affect. Heme/Lymph/Immune no lymphadenopathy. Differential Diagnosis: Includes but is not limited to in a particular order acute alcohol intoxication, alcohol abuse, dehydration, electrolyte abnormality , nausea vomiting from acute alcohol intoxication, hypothermia, frostbite, cade nip Medical Decision Making: Plan for this patient warm blankets, obtain a core temperature, check electrolytes, check glucose, check alcohol level, warm with blankets as well as Bear Hugger. Re-evaluation: 0526AM: Patient's alcohol level 236. 0537AM: Patient ambulatory stable gait. Answers my questions appropriately. He is normothermic. Feels better. He is now clinically sober and safe for discharge. Source: Patient, EMS - Personal History Tetanus Vaccine Date: 2014 - Medical/Surgical History Hx Asthma: No Hx Chronic Respiratory Disease: No Hx Diabetes: No Hx Cardiac Disease: No Hx Renal Disease: No Hx Cirrhosis: No Hx Alcoholism: Yes Hx HIV/AIDS: No Hx Splenectomy or Spleen Trauma: No Other PMH: ETOH ABUSE, ETOH w/d seizures, depression, gerd, cervical spine surgery, lumbar spine sgy - Social History Smoking Status: Heavy smoker Constitutional: Initial Vital Signs Temperature (C) 36.4 C 03/12/17 03:05 Heart Rate 84 03/12/17 03:05 Respiratory Rate 16 03/12/17 03:05 Blood Pressure 92/52 L 03/12/17 03:05 O2 Sat (%) 98 03/12/17 03:05 O2 Delivery Mode Room Air Allergies/Adverse Reactions: No Known Allergies Allergy (Verified 03/08/17 20:24) Home Medications: Medication Instructions Recorded Pregabalin [LYRICA] 100 mg PO TID 10/24/16 Folic Acid [Folic Acid 1 MG (*)] 1 mg PO DAILY tab 10/28/16 Multivitamins [Multivitamin (*)] 1 each PO DAILY tab 10/28/16 Thiamine HCl [Vitamin B-1] 100 mg PO DAILY tab 10/28/16 GABAPENTIN 03/08/17 Lexapro 03/08/17 Medical Decision Making - Data Points Laboratory Results: Laboratory Results 03/12/17 04:00 03/12/17 04:00 03/12/17 03/12/17 03/12/17 04:00 04:00 03:20 WBC 6.57 10^3/uL 10^3/uL (3.80-9.50) RBC 4.51 10^6/uL 10^6/uL (4.40-6.38) Hgb 15.3 g/dL g/dL (13.7-17.5) Hct 43.9 % % (40.0-51.0) MCV 97.3 fL fL (81.5-99.8) MCH 33.9 pg pg (27.9-34.1) MCHC 34.9 g/dL g/dL (32.4-36.7) RDW 14.6 % % (11.5-15.2) Plt Count 142 10^3/uL L 10^3/uL (150-400) MPV 9.2 fL fL (8.7-11.7) Neut % (Auto) 60.4 % % (39.3-74.2) Lymph % (Auto) 28.8 % % (15.0-45.0) [place] % (Auto) 7.9 % % (4.5-13.0) Eos % (Auto) 0.9 % % (0.6-7.6) Baso % (Auto) 0.5 % % (0.3-1.7) Nucleat RBC Rel Count 0.0 % % (0.0-0.2) Absolute Neuts (auto) 3.97 10^3/uL 10^3/uL (1.70-6.50) Absolute Lymphs (auto) 1.89 10^3/uL 10^3/uL (1.00-3.00) Absolute Monos (auto) 0.52 10^3/uL 10^3/uL (0.30-0.80) Absolute Eos (auto) 0.06 10^3/uL 10^3/uL (0.03-0.40) Absolute Basos (auto) 0.03 10^3/uL 10^3/uL (0.02-0.10) Absolute Nucleated RBC 0.00 10^3/uL 10^3/uL (0-0.01) Immature Gran % 1.5 % H % (0.0-1.1) Immature Gran # 0.10 10^3/uL 10^3/uL (0.00-0.10) Turbidity REJ Sodium 147 mEq/L H mEq/L REJ (135-145) Potassium 3.6 mEq/L mEq/L REJ (3.5-5.2) Chloride 109 mEq/L mEq/L REJ (97-110) Carbon Dioxide 18 mEq/l L mEq/l REJ (22-31) Anion Gap 20 mEq/L H mEq/L REJ (8-16) BUN 14 mg/dL mg/dL REJ (7-23) Creatinine 0.7 mg/dL mg/dL REJ (0.7-1.3) Estimated GFR > 60 REJ Glucose 71 mg/dL mg/dL REJ (70-100) Calcium 8.5 mg/dL mg/dL REJ (8.5-10.4) Specimen Hemolysis REJ Ethyl Alcohol 236 mg/dL H mg/dL REJ (0-10) 03/12/17 03:20 WBC TNP RBC TNP Hgb TNP Hct TNP MCV TNP MCH TNP MCHC TNP RDW TNP Plt Count TNP MPV TNP Neut % (Auto) TNP Lymph % (Auto) TNP [place] % (Auto) TNP Eos % (Auto) TNP Baso % (Auto) TNP Nucleat RBC Rel Count TNP Absolute Neuts (auto) TNP Absolute Lymphs (auto) TNP Absolute Monos (auto) TNP Absolute Eos (auto) TNP Absolute Basos (auto) TNP Absolute Nucleated RBC TNP Immature Gran % TNP Immature Gran # TNP Turbidity Sodium Potassium Chloride Carbon Dioxide Anion Gap BUN Creatinine Estimated GFR Glucose Calcium Specimen Hemolysis Ethyl Alcohol Medications Given: Discontinued Medications Sodium Chloride (Ns) 1,000 mls @ 0 mls/hr IV EDNOW ONE; Wide Open PRN Reason: Protocol Stop: 03/12/17 03:06 Last Admin: 03/12/17 04:12 Dose: 1,000 mls Ibuprofen (Motrin) 600 mg PO EDNOW ONE Stop: 03/12/17 03:34 Last Admin: 03/12/17 03:38 Dose: 600 mg Departure - Departure Disposition: Home, Routine, Self-Care Clinical Impression: Alcohol intoxication Qualifiers: Complication of substance-induced condition: uncomplicated Qualified Code(s): F10.920 - Alcohol use, unspecified with intoxication, uncomplicated Hypothermia Qualifiers: Encounter type: initial encounter Qualified Code(s): T68.XXXA - Hypothermia, initial encounter Condition: Good Instructions: Alcohol Intoxication (ED), Abuse of Alcohol (ED) Referrals: NONE *PRIMARY CARE P,. [Primary Care Provider] - As per Instructions
[2017-03-12 03:19] VITALS: RESP 16; TEMP 97.5
[2017-03-12] MEDS ORDERED: IBUPROFEN 600 MG TAB PO ONE (03:33)
[2017-03-12 04:07] VITALS: BP 108/75; PULSE 81; O2SAT 93
[2017-03-12 04:13] LABS: PLATELET COUNT 142 10^3/uL (150-400)
== END 2017-03-12 06:18 | disposition home or self-care (01) ==
LOC: EDUNIT#
DX: T68.XXXA Hypothermia, initial encounter (principal); F10.920 Alcohol use, unspecified with intoxication, uncomplicated; F17.200 Nicotine dependence, unspecified, uncomplicated; E86.9 Volume depletion, unspecified; W93.8XXA Exposure to other excessive cold of man-made origin, initial encounter
CPT/HCPCS: G0480

== ENCOUNTER 2017-03-14 19:08 | Emergency (ER) | payer MEDICAID ==
--- NOTE | 2017-03-14 20:07 | EDPHY ---
H & P Smoking Status: Heavy smoker Time Seen by Provider: 03/14/17 19:46 HPI/ROS: CHIEF COMPLAINT: Alcohol intoxication HISTORY OF PRESENT ILLNESS: 56-year-old homeless male presents to the emergency department by ambulance with acute alcohol intoxication. The patient was found outside and was unable to ambulate. No reported trauma. Patient admits to drinking alcohol. He denies any other substance abuse. The patient does state that he [facility] Viv[facility]rol, however he drank alcohol instead. Currently has no physical complaints. Denies chest pain or difficulty breathing. Denies abdominal pain. REVIEW OF SYSTEMS: Constitutional: No fever, no chills. Eyes: No double or blurry vision. ENT: No sore throat. Respiratory: No cough, no shortness of breath. Cardiac: No chest pain. Gastrointestinal: No abdominal pain, vomiting or diarrhea. Genitourinary: No dysuria. Musculoskeletal: No neck or back pain. Skin: No rashes. Neurological: No headache. (Laura Jalloh) Past Medical/Surgical History: Alcoholism, alcohol withdrawal seizures, depression, GERD, cervical and lumbar spine surgeries (Laura Jalloh) Social History: Homeless (Laura Jalloh) Physical Exam: General Appearance: Alert, no distress. Smells strongly of alcohol. No visible signs of trauma to his head. Mentating normally and answering questions appropriately. Eyes: Pupils equal and round. Extraocular motions are all intact. ENT: Mouth: Mucous membranes moist. Respiratory: No wheezing, rhonchi, or rales, lungs are clear to auscultation. Cardiovascular: Regular rate and rhythm. Gastrointestinal: Abdomen is soft and nontender, no masses, no rebound or guarding, bowel sounds normal. Neurological: Alert and oriented x 3, cranial nerves II through XII grossly intact Skin: Warm and dry, no rashes. Musculoskeletal: Nontender to palpate along the cervical, thoracic or lumbar spine. Neck is supple. Extremities: Full range of motion and no peripheral edema. Psychiatric: Patient is oriented X 3, there is no agitation. (Laura Jalloh) Constitutional: Initial Vital Signs Temperature (C) 36.6 C 03/14/17 19:17 Heart Rate 91 03/14/17 19:17 Respiratory Rate 18 03/14/17 19:17 Blood Pressure 125/78 H 03/14/17 19:17 O2 Sat (%) 94 03/14/17 19:17 O2 Delivery Mode Room Air Allergies/Adverse Reactions: No Known Allergies Allergy (Verified 03/14/17 19:16) Home Medications: Medication Instructions Recorded Pregabalin [LYRICA] 100 mg PO TID 10/24/16 Folic Acid [Folic Acid 1 MG (*)] 1 mg PO DAILY tab 10/28/16 Multivitamins [Multivitamin (*)] 1 each PO DAILY tab 10/28/16 Thiamine HCl [Vitamin B-1] 100 mg PO DAILY tab 10/28/16 GABAPENTIN 03/08/17 Lexapro 03/08/17 Medical Decision Making ED Course/Re-evaluation: 56-year-old male presents to the emergency department acute alcohol intoxication. The patient is not welcome at the [facility] until after 04/10/2017 due to aggressive behavior. The patient is welcome to go to the [facility] for treatment, however he will not be admitted to their inpatient detox center. This was explained to the patient. When the patient is able to ambulate without assistance and has been medically cleared, he will be discharged. (Laura Jalloh) 2:40 a.m.- The patient has remained stable during my shift. He has become more and more clinically sober. He was able to walk with a steady gait and tolerate food by mouth. We have contacted the [facility] and he has been accepted there. We will transfer him. (Nancy Maravilla) The patient was evaluated and managed by the physician personal injury legal assistant. I have reviewed this chart and I agree with the findings and plan of care as documented , as indicated by my signature. I am the secondary supervising physician. ( Kaitlin Rachel) Differential Diagnosis: Altered mental status including but not limited to hypoglycemia, infectious process, electrolyte abnormality, head injury and intoxicants. (Laura Jalloh) - Data Points Medications Given: Discontinued Medications Chlordiazepoxide (Librium 25 Mg Prepack#6) 1 btl TAKEHOME EDNOW ONE Stop: 03/15/17 02:29 Last Admin: 03/15/17 02:31 Dose: 1 btl Departure - Departure Disposition: Home, Routine, Self-Care Clinical Impression: Alcoholic intoxication Qualifiers: Complication of substance-induced condition: uncomplicated Qualified Code(s): F10.250 - Alcohol use, unspecified with intoxication, uncomplicated Condition: Good Instructions: Chlordiazepoxide/Clidinium (By mouth), Alcohol Intoxication (ED) Additional Instructions: You should not drink alcohol in excess. Referrals: [facility] [Outside] - As per Instructions [facility],. [Clinic] - As per Instructions
[2017-03-15] MEDS ORDERED: CHLORDIAZEPOXIDE 25MG PREPK#6 BTL TAKEHOME ONE (02:28)
[2017-03-15 02:33] VITALS: RESP 16
[2017-03-15 02:39] VITALS: BP 137/80; PULSE 79; TEMP 97.9; O2SAT 94
== END 2017-03-15 03:15 | disposition home or self-care (01) ==
LOC: EDUNIT#
DX: F10.920 Alcohol use, unspecified with intoxication, uncomplicated (principal); F17.200 Nicotine dependence, unspecified, uncomplicated